=== PATIENT | female | born 1935 | race Caucasian/White ===

== ENCOUNTER 2017-07-04 12:28 | Outpatient (CLI) | payer MEDICARE, BC | END 2017-07-04 12:29 | disposition short-term general hospital (02) | LOC: EMS 12:28 | PROVIDERS: ATTEND Surgery | DX: R41.0 Disorientation, unspecified (principal); R73.09 Other abnormal glucose | CPT/HCPCS: A0425; A0427; A0888 ==

== ENCOUNTER 2017-07-08 10:04 | Outpatient (CLI) | payer MEDICARE, BC | END 2017-07-08 10:05 | disposition short-term general hospital (02) | LOC: EMS 10:04 | PROVIDERS: ATTEND Surgery | DX: S09.93XA Unspecified injury of face, initial encounter (principal); W01.198A Fall on same level from slipping, tripping and stumbling with subsequent striking against other object, initial encounter; Y93.01 Activity, walking, marching and hiking; Y92.481 Parking lot as the place of occurrence of the external cause | CPT/HCPCS: A0425; A0429; A0888 ==

== ENCOUNTER 2017-08-17 09:33 | Outpatient (CLI) | payer MEDICARE, BC | END 2017-08-17 09:34 | disposition critical access hospital (66) | LOC: EMS 09:33 | PROVIDERS: ATTEND Surgery | DX: R11.2 Nausea with vomiting, unspecified (principal); R10.9 Unspecified abdominal pain; R19.7 Diarrhea, unspecified | CPT/HCPCS: A0425; A0427 ==

== ENCOUNTER 2017-08-17 09:50 | Inpatient (IN) | payer MEDICARE, BC ==
[2017-08-17] MEDS ORDERED: SODIUM CHLORIDE 0.9% 1,000 ML IV ONE (09:58)
[2017-08-17] MEDS ORDERED: PANTOPRAZOLE 40 MG VIAL IV STA (10:01)
--- NOTE | 2017-08-17 10:04 | ED Physician Documentation ---
PD HPI GI BLEED - Stated complaint Stated Complaint: N/V/D - Chief complaint Chief Complaint: Abd Pain - History obtained from History obtained from: Patient, Family - History of Present Illness Timing - onset: Last night Timing - duration: Hours Timing - details: Gradual onset, Still present Associated symptoms: Coffee ground emesis, Black/tarry stool, Abdominal pain Contributing factors: Bad food Improved by: Other (nothing) Similar symptoms before: Has not had sx before Recently seen: Not recently seen - Additional information Additional information: 82-year-old female living in assisted living at [place] has developed nausea and vomiting overnight and has vomited some coffee-ground material has dark diarrhea. She is weak and pale Review of Systems Constitutional: denies: Fever Ears: denies: Ear pain Nose: denies: Congestion Throat: denies: Sore throat Cardiac: denies: Chest pain / pressure, Palpitations Respiratory: denies: Dyspnea, Cough GI: reports: Abdominal Pain, Nausea, Vomiting, Diarrhea : denies: Dysuria, Frequency Skin: denies: Rash Musculoskeletal: denies: Neck pain, Back pain, Extremity pain PD PAST MEDICAL HISTORY - Past Medical History Past Medical History: Yes Cardiovascular: High cholesterol Respiratory: None Neuro: TIA, Peripheral neuropathy Endocrine/Autoimmune: Type 2 diabetes, HyPOthyroidism GI: GERD : Incontinence HEENT: Chronic hearing loss Psych: None Musculoskeletal: Osteoarthritis Derm: None - Past Surgical History Past Surgical History: Yes General: Appendectomy, Bowel surgery Ortho: Knee replacement - Present Medications Home Medications: Ambulatory Orders Medication Instructions Recorded Confirmed Aspirin/Dipyridamole [Aggrenox 25 1 each PO BID 10/21/13 08/17/17 mg-200 mg Capsule] Atorvastatin Calcium 20 mg PO DAILY 10/21/13 08/17/17 Calcitriol [Rocaltrol] 0.25 mcg PO DAILY 10/21/13 08/17/17 Celecoxib [CeleBREX] 200 mg PO DAILY 10/21/13 08/17/17 Donepezil HCl [Aricept] 10 mg PO DAILY 10/21/13 08/17/17 FLUoxetine [PROzac] 40 mg PO BID 10/21/13 08/17/17 HYDROcod/ACETAM 5/325 [Vicodin 1 each PO DAILY 10/21/13 08/17/17 5/325] Insulin Aspart (Vial) [NovoLOG] 1 - 4 unit SQ PRN PRN 12/16/13 10/12/17 Insulin Glargine,Hum.rec.anlog 20 unit SQ HS 10/21/13 08/17/17 [Lantus] Levothyroxine Sodium [Synthroid] 112 mcg PO DAILY 10/21/13 08/17/17 Metformin HCl [Metformin HCl ER] 500 mg PO BID 10/21/13 08/17/17 Promethazine [Phenergan] 25 - 50 mg PO Q6H PRN 10/21/13 08/17/17 Tizanidine HCl [Zanaflex] 4 mg PO DAILY 10/21/13 08/17/17 Tolterodine [Detrol LA] 4 mg PO DAILY 10/21/13 08/17/17 raNITIdine [Zantac] 150 mg PO DAILY 10/21/13 08/17/17 - Allergies Allergies/Adverse Reactions: Allergies Allergy/AdvReac Type Severity Reaction Status Date / Time No Known Drug Allergies Allergy Verified 10/21/13 15:44 - Social History Does the pt smoke?: No Smoking Status: Never smoker Does the pt drink ETOH?: No Does the pt have substance abuse?: No - Immunizations Immunizations are current?: Yes - POLST Patient has POLST: No POLST Status: Full Code PD ED PE NORMAL - Vitals Vital signs reviewed: Yes (hypertensive ) - General General: No acute distress, Well developed/nourished, Other (thin pale lenz appearing female with very white eyes ) - HEENT HEENT: Atraumatic, PERRL, EOMI, Other (The conjunctiva are pale and there is dried brown vomitus on the lips. ) - Neck Neck: Supple, no meningeal sign - Cardiac Cardiac: RRR, Other (1/6 holosystolic murmer at LSB) - Respiratory Respiratory: No respiratory distress, Clear bilaterally - Abdomen Abdomen: Soft, Non tender - Rectal Rectal: Other (dark brown stool is present and is guiac negative) - Back Back: No CVA TTP, No spinal TTP - Derm Derm: Normal color, Warm and dry, No rash - Extremities Extremities: No deformity, No edema - Neuro Neuro: No motor deficit, No sensory deficit - Psych Psych: Normal mood, Normal affect Results - Vitals Vitals: Vital Signs - 24 hr 08/17/17 08/17/17 09:49 10:20 Temperature 36.5 C Heart Rate 66 66 Respiratory 17 19 Rate Blood Pressure 134/106 H 154/66 H O2 Saturation 100 100 Oxygen O2 Source Room air - Labs Labs: Laboratory Tests 08/17/17 08/17/17 08/17/17 10:03 10:03 10:03 WBC 13.2 H RBC 4.07 L Hgb 12.8 Hct 38.6 MCV 94.7 MCH 31.4 H MCHC 33.2 RDW 14.4 Plt Count 209 MPV 7.5 L Neut # 11.5 H Lymph # 0.9 L [place] # 0.7 Eos # 0.1 Baso # 0.1 Absolute Nucleated RBC 0.00 Nucleated RBC % 0.0 Sodium 144 Potassium 3.1 L Chloride 101 Carbon Dioxide 30 Anion Gap 13.0 BUN 25 H Creatinine 0.9 Estimated GFR (MDRD) 60 L Glucose 160 H Calcium 9.7 Total Bilirubin 0.4 AST 31 ALT 21 Alkaline Phosphatase 70 Troponin I Total Protein 7.1 Albumin 4.0 Globulin 3.1 Albumin/Globulin Ratio 1.3 Lipase 24 Urine Color Urine Clarity Urine pH Ur Specific [place] Urine Protein Urine Glucose (UA) Urine Ketones Urine Occult Blood Urine Nitrite Urine Bilirubin Urine Urobilinogen Ur Leukocyte Esterase Ur Microscopic Review Urine Culture Comments Blood Type A NEGATIVE Antibody Screen NEGATIVE Crossmatch IS Only See Detail 08/17/17 08/17/17 10:03 11:20 WBC RBC Hgb Hct MCV MCH MCHC RDW Plt Count MPV Neut # Lymph # [place] # Eos # Baso # Absolute Nucleated RBC Nucleated RBC % Sodium Potassium Chloride Carbon Dioxide Anion Gap BUN Creatinine Estimated GFR (MDRD) Glucose Calcium Total Bilirubin AST ALT Alkaline Phosphatase Troponin I < 0.04 Total Protein Albumin Globulin Albumin/Globulin Ratio Lipase Urine Color LT. YELLOW Urine Clarity CLEAR Urine pH 8.5 H Ur Specific [place] 1.015 Urine Protein NEGATIVE Urine Glucose (UA) NEGATIVE Urine Ketones NEGATIVE Urine Occult Blood NEGATIVE Urine Nitrite NEGATIVE Urine Bilirubin NEGATIVE Urine Urobilinogen 0.2 (NORMAL) Ur Leukocyte Esterase NEGATIVE Ur Microscopic Review NOT INDICATED Urine Culture Comments NOT INDICATED Blood Type Antibody Screen Crossmatch IS Only Procedures - IVC sono (time) 1100 Bedside IVC sono: IVC measures (cm) (1.93), IVC collapsed c insp (cm) (complete) , Dehydration (mild by collapse after 1 liter of saline.) PD MEDICAL DECISION MAKING - ED course Complexity details: reviewed results, re-evaluated patient, considered differential, d/w patient, d/w family ED course: 82-year-old female presents to the emergency department ashen finch with pale conjunctival having vomited brown liquid. The initial concern was for acute GI bleeding. She is administered a liter of fluid and following that still has some mild dehydration. Her H&H are normal. Sampling of the dark stool is negative for blood. The patient has improved color and still has nausea and vomiting. I suspect the brown vomitus was the chocolate cookies the patient had (she ate about 6 cookies) before she started vomiting. Here in the ED she is hydrated with saline and continues to have some nausea vomiting and diarrhea. Admission for gastroenteritis is sought. Dr. Quiroz graciously agrees to care for the patient in the hospital. Departure - Departure Disposition: ED Place in Observation Clinical Impression: Gastroenteritis, Dehydration Condition: Fair
[2017-08-17 10:11] LABS: BASOPHILS # (AUTO) 0.1 10^3/uL (0.0-0.1); BASOPHILS % (AUTO) 0.7 %; EOSINOPHILS # (AUTO) 0.1 10^3/uL (0.0-0.7); EOSINOPHILS % (AUTO) 0.5 %; HCT - HEMATOCRIT 38.6 % (37.0-47.0); HGB - HEMOGLOBIN 12.8 g/dL (12.0-16.0); LYMPHOCYTES # (AUTO) 0.9 10^3/uL (1.5-3.5); LYMPHOCYTES % (AUTO) 6.6 %; MEAN CORPUSCULAR HEMOGLOBIN 31.4 pg (27.0-31.0); MEAN CORPUSCULAR HGB CONC 33.2 g/dL (32.0-36.0); MEAN CORPUSCULAR VOLUME 94.7 fL (81.0-99.0); MEAN PLATELET VOLUME 7.5 fL (7.9-10.8); MONOCYTES # (AUTO) 0.7 10^3/uL (0.0-1.0); MONOCYTES % (AUTO) 4.9 %; NEUTROPHILS # (AUTO) 11.5 10^3/uL (1.5-6.6); NEUTROPHILS % (AUTO) 87.3 %; RED BLOOD COUNT 4.07 10^6/uL (4.20-5.40); RED CELL DISTRIBUTION WIDTH 14.4 % (12.0-15.0); UNCORRECTED WHITE BLOOD COUNT 13.2 x10^3/uL; WHITE BLOOD COUNT 13.2 x10^3/uL (4.8-10.8)
[2017-08-17] MEDS ORDERED: PANTOPRAZOLE 40 MG VIAL ONE (10:15)
[2017-08-17 10:22] LABS: ALBUMIN/GLOBULIN RATIO 1.3 (1.0-2.2); BILIRUBIN,TOTAL 0.4 mg/dL (0.2-1.0); CALCIUM 9.7 mg/dL (8.5-10.3); CREATININE 0.9 mg/dL (0.4-1.0); POTASSIUM 3.1 mmol/L (3.5-5.0); TOTAL PROTEIN 7.1 g/dL (6.7-8.2)
[2017-08-17 11:32] LABS: BILIRUBIN,URINE NEGATIVE (NEGATIVE); PH,URINE 8.5 PH (5.0-7.5)
[2017-08-17 11:38] LABS: UA CHARGE (STRIP ONLY) YES; UR CULTURE IF IND NOT INDICATED
[2017-08-17] MEDS ORDERED: ONDANSETRON 4 MG/2 ML VIAL IVP STA (12:57)
[2017-08-17] MEDS ORDERED: SODIUM CHLORIDE FLUSH 0.9% 10 ML SYRINGE IVP ONE (13:04)
[2017-08-17] MEDS ORDERED: ONDANSETRON 4 MG/2 ML VIAL ONE (13:04)
[2017-08-17] MEDS ORDERED: ACETAMINOPHEN 325 MG TABLET PO PRN (13:08)
[2017-08-17] MEDS ORDERED: ONDANSETRON 4 MG/2 ML VIAL IVP PRN (13:08)
[2017-08-17] MEDS ORDERED: ACETAMINOPHEN 1,000 MG/100 ML 100 ML IV STA (13:40)
[2017-08-17] MEDS ORDERED: ACETAMINOPHEN 1,000 MG/100 ML 0 ML IV ONE (13:54)
[2017-08-17] MEDS: SODIUM CHLORIDE FLUSH 0.9% 10 ML SYRINGE IVP SCH ×2 (14:29→22:24)
[2017-08-17] MEDS: SODIUM CHLORIDE 0.9% 1,000 ML IV SCH (14:29)
[2017-08-17] MEDS: cefTRIAXone 1 GM in SODIUM CHLORIDE 0.9% MINIBAG 100 ML IV SCH (14:29)
--- NOTE | 2017-08-17 15:11 | HISTORY & PHYSICAL EXAMINATION ---
DATE OF ADMISSION: 08/17/2017 PATIENT WAS SEEN: At 1 p.m. CODE STATUS: DO NOT RESUSCITATE. PRIMARY CARE PROVIDER: aKr Carr MD EXAM LIMITATIONS: None. RECORDS: The records were reviewed. SOURCE OF INFORMATION: The source of information was the patient. CHIEF COMPLAINT: Nausea and vomiting. ADVANCE DIRECTIVE: The patient states SHE HAS NO ADVANCE DIRECTIVE. The patient is an 82-year-old white female who at 6 chocolate cookies last night and began vomiting early this morning. She also had shakes and chills. She also complains of diarrhea. DRUG ALLERGIES: NO KNOWN DRUG ALLERGIES. HOME MEDICATIONS 1. Aspirin 81 mg 1 tab p.o. twice a day. 2. Atorvastatin 20 mg 1 tab p.o. every day. 3. Calcitriol 0.25 mcg 1 tab p.o. every day. 4. Lantus 20 units subcutaneous at bedtime. 5. Celebrex 200 mg 1 tab p.o. every day. 6. Donepezil 10 mg 1 tab p.o. every day. 7. Fluoxetine 40 mg 1 tab p.o. twice a day. 8. [place] 5/325 mg 1 tab p.o. every day. 9. NovoLog 1 to 4 units subcutaneous p.r.n. with meals. 10. Levothyroxine 112 mcg 1 tab p.o. every day. 11. Metformin 500 mg 1 tab p.o. twice a day with meals. 12. Phenergan 25 mg to 50 mg p.o. every 6 hours. 13. Zantac 150 mg 1 tab p.o. every day. 14. Detrol LA 4 mg 1 tab p.o. every day. 15. Zanaflex 4 mg 1 tab p.o. every day. PAST MEDICAL HISTORY: Diabetes mellitus, dementia, and hypothyroidism. FAMILY HISTORY: Noncontributory. SOCIAL HISTORY: She is single. She has no children. She smoked 3 packs per day for 15 years, quit 20 years ago. She does not drink alcohol. She uses no recreational drugs. She lives alone at home. REVIEW OF SYSTEMS RESPIRATORY: Productive cough and shortness of breath. HEART: Chest pain from vomiting. ABDOMEN: Diarrhea, nausea and vomiting. URINARY SYSTEM: No burning urine, no frequency. HEAD: No headaches. EYES: No blurred vision. EARS: No ear pain or tinnitus. NOSE: No runny nose. THROAT: No pain or redness. MUSCULOSKELETAL: Proximal muscle weakness, lower back pain. JOINTS: Right and left knee pain. NEUROLOGIC: No dementia. No aphasia. No limb weakness. WEAKNESS AND FATIGUE: Yes. FEVER: Yes. PHYSICAL EXAMINATION VITAL SIGNS: Temperature of 36.5 degrees, pulse of 66, respiratory rate of 17, blood pressure of 134/106, 100% O2 saturation on room air. GENERAL: She is alert and cooperative. HEENT: Head is atraumatic, normocephalic. Eyes are PERRLA, EOMI. NECK: Supple. No JVD. No bruits. No thyroid enlargement. No adenopathy. HEART: RRR., III/ systolic murmur at 2nd RICS and LSB LUNGS: Clear to auscultation. ABDOMEN: Positive for bowel sounds, soft, nontender. No rebound, no guarding. EXTREMITIES: Warm. No edema, +2 pedal pulses. She has 5/5 muscle strength in upper and lower extremities. NEUROLOGIC: She is oriented x3, follows commands, moves all 4 extremities. LABORATORY DATA: Sodium is 144, potassium is 3.1, chloride is 101, bicarbonate is 30, BUN is 25, creatinine is 0.9, glucose is 160. White blood cells are 13.2 , hemoglobin is 12.8, hematocrit 38.6, platelets are 209,000. Troponin is less than 0.04. ASSESSMENT AND PLAN: Gastroenteritis that will be treated with intravenous 0.9 normal saline, IV Zofran and Tylenol. Hypokalemia will be treated with potassium chloride rider. Suspected infection will be treated with IV Rocephin. Hyperlipidemia will be treated with Lipitor. Osteoarthritis will be treated with Celebrex. Dementia will be treated with Aricept. Depression will be treated with Prozac. Diabetes mellitus will be treated with subcutaneous Lantus. Hypothyroidism will be treated with levothyroxine. Incontinence will be treated with Detrol LA. Her anticipated length of stay is 2 days. She will be on heparin 5000 units subcutaneously b.i.d. for DVT prevention, and she will be on IV Protonix to prevent stress ulcers. JOB #: [id number] EXT JOB #:[id number] [facility]
[2017-08-17] MEDS ORDERED: PROCHLORPERAZINE INJ 10 MG in SODIUM CHLORIDE 0.9% 50 ML IV PRN (17:21)
[2017-08-17] MEDS ORDERED: MORPHINE 2 MG/ML SYRINGE IVP PRN (17:22)
--- NOTE | 2017-08-17 17:59 | XRAY Report ---
FRONTAL CHEST: 08/17/2017 CLINICAL INDICATION: Shortness of breath. Frontal view of the chest demonstrates a normal cardiac silhouette. The lungs are hyperinflated with emphysematous changes. No focal consolidation, effusion, or pneumothorax is present. Old, healed r ib fractures are noted. IMPRESSION: EMPHYSEMA. NO EVIDENCE OF ACUTE CARDIOPULMONARY DISEASE. JOB #: [id number] EXT JOB #:[id number]
[2017-08-17] MEDS: POTASSIUM CHLOR 10 MEQ/100 ML 10 MEQ/100 ML BAG IV SCH ×2 (18:01→19:10)
[2017-08-17 19:25] LABS: HEMOGLOBIN A1C 0.9 g/dL
[2017-08-17] MEDS ORDERED: POTASSIUM CHLOR 10 MEQ/100 ML 10 MEQ/100 ML BAG IV SCH ×2 (21:00→22:00)
[2017-08-17] MEDS ORDERED: INSULIN GLARGINE 300 UNIT/3 ML PEN SUBQ SCH (21:00)
[2017-08-17] MEDS: INSULIN ASPART 300 UNIT/3 ML PEN SUBQ SCH (22:20)
[2017-08-17] MEDS: HEPARIN 5,000 UNIT/ML VIAL SUBQ SCH (22:22)
[2017-08-17] MEDS: ASPIRIN/DIPYRIDAMOLE 25 MG/200 MG CAPSULE PO SCH (22:23)
[2017-08-17] MEDS: FLUoxetine 10 MG CAPSULE PO SCH (22:23)
[2017-08-17] MEDS: ATORVASTATIN 10 MG TABLET PO SCH (22:23)
[2017-08-18] MEDS: SODIUM CHLORIDE 0.9% 1,000 ML IV SCH (03:06)
[2017-08-18 06:23] LABS: BASOPHILS % (AUTO) 0.4 %; HCT - HEMATOCRIT 34.5 % (37.0-47.0); HGB - HEMOGLOBIN 11.6 g/dL (12.0-16.0); LYMPHOCYTES # (AUTO) 1.3 10^3/uL (1.5-3.5); LYMPHOCYTES % (AUTO) 9.6 %; MEAN CORPUSCULAR HEMOGLOBIN 32.3 pg (27.0-31.0); MEAN CORPUSCULAR HGB CONC 33.6 g/dL (32.0-36.0); MEAN CORPUSCULAR VOLUME 96.2 fL (81.0-99.0); MEAN PLATELET VOLUME 8.5 fL (7.9-10.8); MONOCYTES # (AUTO) 0.9 10^3/uL (0.0-1.0); MONOCYTES % (AUTO) 6.9 %; NEUTROPHILS % (AUTO) 83.1 %; RED BLOOD COUNT 3.58 10^6/uL (4.20-5.40); RED CELL DISTRIBUTION WIDTH 14.8 % (12.0-15.0); UNCORRECTED WHITE BLOOD COUNT 13.2 x10^3/uL; WHITE BLOOD COUNT 13.2 x10^3/uL (4.8-10.8)
[2017-08-18] MEDS: SODIUM CHLORIDE FLUSH 0.9% 10 ML SYRINGE IVP SCH ×3 (06:28→21:57)
[2017-08-18] MEDS: PANTOPRAZOLE 40 MG VIAL IVP SCH (06:28)
[2017-08-18 06:29] LABS: HEMOGLOBIN A1C 0.69 g/dL
[2017-08-18 06:30] LABS: ALBUMIN/GLOBULIN RATIO 1.2 (1.0-2.2); BILIRUBIN,TOTAL 0.6 mg/dL (0.2-1.0); CALCIUM 8.7 mg/dL (8.5-10.3); CREATININE 0.9 mg/dL (0.4-1.0); POTASSIUM 2.9 mmol/L (3.5-5.0); TOTAL PROTEIN 6.2 g/dL (6.7-8.2)
[2017-08-18] MEDS: INSULIN ASPART 300 UNIT/3 ML PEN SUBQ SCH ×4 (09:23→21:57)
[2017-08-18] MEDS: cefTRIAXone 1 GM in SODIUM CHLORIDE 0.9% MINIBAG 100 ML IV SCH (10:44)
[2017-08-18] MEDS: ASPIRIN/DIPYRIDAMOLE 25 MG/200 MG CAPSULE PO SCH ×2 (10:47→21:56)
[2017-08-18] MEDS: FLUoxetine 10 MG CAPSULE PO SCH ×2 (10:47→21:56)
[2017-08-18] MEDS: POTASSIUM CHLORIDE 20 MEQ TABLET PO SCH ×2 (10:47→18:58)
[2017-08-18] MEDS: CELECOXIB 100 MG CAPSULE PO SCH (10:48)
[2017-08-18] MEDS: DONEPEZIL 5 MG TABLET PO SCH (10:48)
[2017-08-18] MEDS: LEVOTHYROXINE 112 MCG TABLET PO SCH (10:48)
[2017-08-18] MEDS: CALCITRIOL 0.25 MCG CAPSULE PO SCH (10:48)
[2017-08-18] MEDS: tiZANidine 4 MG TABLET PO SCH (10:48)
[2017-08-18] MEDS: TOLTERODINE LA 2 MG CAPSULE PO SCH (10:49)
[2017-08-18] MEDS: POLYETHYLENE GLYCOL 3350 17 GM PACKET PO SCH (10:49)
[2017-08-18] MEDS: HEPARIN 5,000 UNIT/ML VIAL SUBQ SCH ×2 (11:17→21:57)
[2017-08-18] MEDS ORDERED: DEXTROSE 50% ABBOJECT 25 GM/50 ML SYRINGE ONE (11:56)
[2017-08-18] MEDS ORDERED: DEXTROSE 5%-0.45% NACL 1,000 ML IV SCH (12:00)
[2017-08-18] MEDS ORDERED: DEXTROSE 50% ABBOJECT 25 GM/50 ML SYRINGE IVP ONE (12:00)
[2017-08-18] MEDS: DEXTROSE 5%-0.45% NACL 1,000 ML IV SCH (18:58)
--- NOTE | 2017-08-18 19:09 | PROVIDER PROGRESS NOTE ---
Assessment/Plan - Problem List (1) Gastroenteritis Assessment/Plan: on IV .9NS and IV Zofran (2) Dehydration Assessment/Plan: IN .9 NS (3) Hyperlipidemia Assessment/Plan: on lipitor (4) Osteoarthritis Assessment/Plan: on celebrex (5) Dementia Assessment/Plan: on Aricept (6) Depression Assessment/Plan: on Prozac (7) Diabetes mellitus Assessment/Plan: on sliding scale insulin with meals (8) Hypothyroidism Assessment/Plan: on levothyroxine (9) Urinary incontinence Assessment/Plan: on detrol LA - Current Meds Current Meds: Current Medications Generic Name Dose Route Start Last Admin Trade Name Freq PRN Reason Stop Dose Admin Atorvastatin Calcium 20 mg 08/17/17 21:00 08/17/17 22:23 Lipitor PO 20 mg QPM TYLER Administration Calcitriol 0.25 mcg 08/18/17 09:00 08/18/17 10:48 Rocaltrol PO 0.25 mcg DAILY TYLER Administration Celecoxib 200 mg 08/18/17 09:00 08/18/17 10:48 Celebrex PO 200 mg DAILY TYLER Administration Dipyridamole/Aspirin 1 cap 08/17/17 21:00 08/18/17 10:47 Aggrenox PO 1 cap BID TYLER Administration Donepezil HCl 10 mg 08/18/17 09:00 08/18/17 10:48 Aricept PO 10 mg DAILY TYLER Administration Fluoxetine HCl 40 mg 08/17/17 21:00 08/18/17 10:47 Prozac PO 40 mg BID TYLER Administration Heparin Sodium (Porcine) 5,000 unit 08/17/17 21:00 08/18/17 11:17 SUBQ 5,000 unit BID TYLER Administration Ceftriaxone Sodium 1 gm/ 100 mls @ 200 mls/hr 08/17/17 14:00 08/18/17 10:44 Sodium Chloride IV 200 mls/hr DAILY TYLER Administration Dextrose/Sodium Chloride 1,000 mls @ 30 mls/hr 08/18/17 15:33 08/18/17 18:58 D5.45ns IV 30 mls/hr .[id number] TYLER Administration Insulin Aspart 1 - 9 unit 08/17/17 21:00 08/18/17 18:59 Novolog SUBQ Not Given 0800,1200,1700,2100 REPLACED BY [facility] Protocol Levothyroxine Sodium 112 mcg 08/18/17 09:00 08/18/17 10:48 Synthroid PO 112 mcg DAILY TYLER Administration Ondansetron HCl 4 mg 08/17/17 13:08 08/18/17 08:25 Zofran Inj IVP 4 mg Q6HR PRN Administration Nausea / Vomiting Pantoprazole Sodium 40 mg 08/18/17 07:00 08/18/17 06:28 Protonix IVP 40 mg QDAC TYLER Administration Polyethylene Glycol 17 gm 08/18/17 09:00 08/18/17 10:49 Miralax PO Not Given DAILY TYLER Sodium Chloride 10 ml 08/17/17 14:00 08/18/17 14:28 Normal Saline Flush 0.9% IVP Not Given Q8HR TYLER Tizanidine HCl 4 mg 08/18/17 09:00 08/18/17 10:48 Zanaflex PO 4 mg DAILY TYLER Administration Tolterodine Tartrate 4 mg 08/18/17 09:00 08/18/17 10:49 Detrol La PO 4 mg DAILY TYLER Administration - Lab Result Lab results reviewed: Yes Fish Bone Diagrams: 08/18/17 05:28 08/18/17 05:28 - Additional Planning Condition/Complexity: Improved (She is less nauseous today.) My Orders: My Active Orders 08/17/17 18:47 Blood Glucose Checks - Eating [RC] 0800,1200,1700,2100 Initiate Hypoglycemia Protocol [RC] .protocol 08/17/17 21:00 Insulin Aspart [NovoLOG] 1 - 9 unit SUBQ 0800,1200,1700,2100 08/18/17 15:33 Dextrose 5%-0.45% NaCl [D5.45ns] 1,000 ml IV 30 mls/hr 08/18/17 Breakfast DIET [Clear Liquid Diet] [DIET] 08/19/17 05:00 BMP - BASIC METABOLIC PANEL [CHEM] Routine CBC - COMP BLD CT W/AUTO DIFF [HEME] Routine Plan Discussed with:: Patient Time Spent: 15-30 minutes Subjective - Subjective Patient Reports: Feeling Better (The patient is not as nauseous today. She is eating food. Her Lantus was held because she was becoming hypoglycemic on the lantus dose.) Objective Vital Signs: Vital Signs - 24 hr 08/17/17 08/17/17 08/18/17 20:06 23:55 04:28 Temperature 37.0 C 37.5 C 37.3 C Heart Rate [ 76 84 70 Brachial] Respiratory 17 16 16 Rate Blood Pressure 163/51 H 138/68 H 134/54 H [Left Brachial artery] Blood Pressure [Right Brachial artery] O2 Saturation 98 97 99 08/18/17 08/18/17 08/18/17 08:27 12:03 15:47 Temperature 36.7 C 36.5 C Heart Rate [ 57 L 57 L 112 H Brachial] Respiratory 18 16 Rate Blood Pressure 133/90 H [Left Brachial artery] Blood Pressure 106/69 109/51 L [Right Brachial artery] O2 Saturation 100 96 Oxygen O2 Source Room air I&O (Last 24 Hrs): Intake and Output Totals x24h 08/16/17 08/17/17 08/18/17 23:59 23:59 23:59 Intake Total 668.121 4219.667 Output Total 150 350 Balance 235.989 6873.667 General: Alert, Oriented x3, Cooperative HEENT: Atraumatic, PERRLA, EOMI Neck: Supple, No JVD Neuro: Alert, CN 2-12 Grossly Intact, Oriented Times 3 Cardiovascular: Regular rate (3/6 systolic murmur at 2nd RICS and left sternal border), Other Respiratory: Chest non-tender, No respiratory distress, Breath sounds nml Abdomen: Normal bowel sounds, Soft, No tenderness Extremities: No edema - Results Results: Laboratory Results WBC 13.2 x10^3/uL (4.8-10.8) H 08/18/17 05:28 RBC 3.58 10^6/uL (4.20-5.40) L 08/18/17 05:28 Hgb 11.6 g/dL (12.0-16.0) L 08/18/17 05:28 Hct 34.5 % (37.0-47.0) L 08/18/17 05:28 MCV 96.2 fL (81.0-99.0) 08/18/17 05:28 MCH 32.3 pg (27.0-31.0) H 08/18/17 05:28 MCHC 33.6 g/dL (32.0-36.0) 08/18/17 05:28 RDW 14.8 % (12.0-15.0) 08/18/17 05:28 Plt Count 193 10^3/uL (130-450) 08/18/17 05:28 MPV 8.5 fL (7.9-10.8) 08/18/17 05:28 Neut # 11.0 10^3/uL (1.5-6.6) H 08/18/17 05:28 Lymph # 1.3 10^3/uL (1.5-3.5) L 08/18/17 05:28 [place] # 0.9 10^3/uL (0.0-1.0) 08/18/17 05:28 Eos # 0.0 10^3/uL (0.0-0.7) 08/18/17 05:28 Baso # 0.0 10^3/uL (0.0-0.1) 08/18/17 05:28 Absolute Nucleated RBC 0.00 x10^3/uL 08/18/17 05:28 Nucleated RBC % 0.0 /100WBC 08/18/17 05:28 Sodium 140 mmol/L (135-145) 08/18/17 05:28 Potassium 2.9 mmol/L (3.5-5.0) L 08/18/17 05:28 Chloride 104 mmol/L (101-111) 08/18/17 05:28 Carbon Dioxide 26 mmol/L (21-32) 08/18/17 05:28 Anion Gap 10.0 (6-13) 08/18/17 05:28 BUN 25 mg/dL (6-20) H 08/18/17 05:28 Creatinine 0.9 mg/dL (0.4-1.0) 08/18/17 05:28 Estimated GFR (MDRD) 60 (>89) L 08/18/17 05:28 Glucose 72 mg/dL (70-100) 08/18/17 05:28 Glycated Hemoglobin 7.6 % (4.6-6.2) H 08/18/17 05:28 Estim Average Glucose 171 (70-100) H 08/18/17 05:28 Lactic Acid 2.3 mmol/L (0.5-2.2) H 08/18/17 00:30 Calcium 8.7 mg/dL (8.5-10.3) 08/18/17 05:28 Magnesium 1.5 mg/dL (1.7-2.8) L 08/18/17 05:28 Total Bilirubin 0.6 mg/dL (0.2-1.0) 08/18/17 05:28 AST 33 IU/L (10-42) 08/18/17 05:28 ALT 25 IU/L (10-60) 08/18/17 05:28 Alkaline Phosphatase 61 IU/L (42-121) 08/18/17 05:28 Troponin I < 0.04 ng/mL (<0.49) 08/17/17 10:03 Total Protein 6.2 g/dL (6.7-8.2) L 08/18/17 05:28 Albumin 3.4 g/dL (3.2-5.5) 08/18/17 05:28 Globulin 2.8 g/dL (2.1-4.2) 08/18/17 05:28 Albumin/Globulin Ratio 1.2 (1.0-2.2) 08/18/17 05:28 Lipase 24 U/L (22-51) 08/17/17 10:03 TSH 1.46 uIU/mL (0.34-5.60) 08/18/17 05:28 Urine Color LT. YELLOW 08/17/17 11:20 Urine Clarity CLEAR (CLEAR) 08/17/17 11:20 Urine pH 8.5 PH (5.0-7.5) H 08/17/17 11:20 Ur Specific [place] 1.015 (1.002-1.030) 08/17/17 11:20 Urine Protein NEGATIVE mg/dL (NEGATIVE) 08/17/17 11:20 Urine Glucose (UA) NEGATIVE mg/dL (NEGATIVE) 08/17/17 11:20 Urine Ketones NEGATIVE mg/dL (NEGATIVE) 08/17/17 11:20 Urine Occult Blood NEGATIVE (NEGATIVE) 08/17/17 11:20 Urine Nitrite NEGATIVE (NEGATIVE) 08/17/17 11:20 Urine Bilirubin NEGATIVE (NEGATIVE) 08/17/17 11:20 Urine Urobilinogen 0.2 (NORMAL) E.U./dL (NORMAL) 08/17/17 11:20 Ur Leukocyte Esterase NEGATIVE (NEGATIVE) 08/17/17 11:20 Ur Microscopic Review NOT INDICATED 08/17/17 11:20 Urine Culture Comments NOT INDICATED 08/17/17 11:20 Blood Type A NEGATIVE 08/17/17 10:03 Antibody Screen NEGATIVE 08/17/17 10:03 Crossmatch IS Only See Detail 08/17/17 10:03
[2017-08-18] MEDS ORDERED: POTASSIUM CHLORIDE 20 MEQ TABLET PO SCH ×2 (19:39→22:00)
[2017-08-18] MEDS: ATORVASTATIN 10 MG TABLET PO SCH (21:56)
[2017-08-19 05:23] LABS: CALCIUM 8.9 mg/dL (8.5-10.3); CREATININE 0.7 mg/dL (0.4-1.0); POTASSIUM 5.1 mmol/L (3.5-5.0)
[2017-08-19 05:24] LABS: BASOPHILS % (AUTO) 0.5 %; EOSINOPHILS # (AUTO) 0.1 10^3/uL (0.0-0.7); HCT - HEMATOCRIT 34.9 % (37.0-47.0); HGB - HEMOGLOBIN 11.6 g/dL (12.0-16.0); LYMPHOCYTES # (AUTO) 1.3 10^3/uL (1.5-3.5); LYMPHOCYTES % (AUTO) 16.6 %; MEAN CORPUSCULAR HEMOGLOBIN 32.4 pg (27.0-31.0); MEAN CORPUSCULAR HGB CONC 33.3 g/dL (32.0-36.0); MEAN CORPUSCULAR VOLUME 97.3 fL (81.0-99.0); MEAN PLATELET VOLUME 8.2 fL (7.9-10.8); MONOCYTES # (AUTO) 0.5 10^3/uL (0.0-1.0); MONOCYTES % (AUTO) 5.8 %; NEUTROPHILS # (AUTO) 6.2 10^3/uL (1.5-6.6); NEUTROPHILS % (AUTO) 76.1 %; RED BLOOD COUNT 3.59 10^6/uL (4.20-5.40); RED CELL DISTRIBUTION WIDTH 14.7 % (12.0-15.0); UNCORRECTED WHITE BLOOD COUNT 8.1 x10^3/uL; WHITE BLOOD COUNT 8.1 x10^3/uL (4.8-10.8)
[2017-08-19] MEDS: SODIUM CHLORIDE FLUSH 0.9% 10 ML SYRINGE IVP SCH ×3 (05:31→21:04)
[2017-08-19] MEDS: PANTOPRAZOLE 40 MG VIAL IVP SCH (06:10)
[2017-08-19] MEDS: SODIUM CHLORIDE FLUSH 0.9% 10 ML SYRINGE IVP PRN (06:10)
[2017-08-19] MEDS: INSULIN ASPART 300 UNIT/3 ML PEN SUBQ SCH ×4 (10:49→21:03)
[2017-08-19] MEDS: HEPARIN 5,000 UNIT/ML VIAL SUBQ SCH ×2 (11:10→21:05)
[2017-08-19] MEDS: CELECOXIB 100 MG CAPSULE PO SCH (11:10)
[2017-08-19] MEDS: POLYETHYLENE GLYCOL 3350 17 GM PACKET PO SCH (11:11)
[2017-08-19] MEDS: FLUoxetine 10 MG CAPSULE PO SCH ×2 (11:12→20:55)
[2017-08-19] MEDS ORDERED: PROCHLORPERAZINE 10 MG/2 ML VIAL IVP PRN (11:13)
[2017-08-19] MEDS: TOLTERODINE LA 2 MG CAPSULE PO SCH (11:14)
[2017-08-19] MEDS: DONEPEZIL 5 MG TABLET PO SCH (11:15)
[2017-08-19] MEDS: LEVOTHYROXINE 112 MCG TABLET PO SCH (11:15)
[2017-08-19] MEDS: CALCITRIOL 0.25 MCG CAPSULE PO SCH (11:16)
[2017-08-19] MEDS: cefTRIAXone 1 GM in SODIUM CHLORIDE 0.9% MINIBAG 100 ML IV SCH (11:16)
[2017-08-19] MEDS: ASPIRIN/DIPYRIDAMOLE 25 MG/200 MG CAPSULE PO SCH ×2 (11:56→21:03)
[2017-08-19] MEDS: tiZANidine 4 MG TABLET PO SCH (11:56)
[2017-08-19] MEDS: ATORVASTATIN 10 MG TABLET PO SCH (20:55)
[2017-08-19] MEDS: DEXTROSE 5%-0.45% NACL 1,000 ML IV SCH (21:04)
--- NOTE | 2017-08-19 21:35 | PROVIDER PROGRESS NOTE ---
Assessment/Plan - Problem List (1) Gastroenteritis Assessment/Plan: on IV .9NS and IV Zofran. The patient is eating food today without nausea and vomiting and would like to go home tomorrow. (2) Dehydration Assessment/Plan: resolved on IV .9 NS (3) Hyperlipidemia Assessment/Plan: on lipitor (4) Osteoarthritis Assessment/Plan: on celebrex (5) Dementia Assessment/Plan: on Aricept (6) Depression Assessment/Plan: on Prozac (7) Diabetes mellitus Assessment/Plan: on slidind scale insulin with meals (8) Hypothyroidism Assessment/Plan: on levothyroxine (9) Urinary incontinence Assessment/Plan: on detrol LA - Current Meds Current Meds: Current Medications Generic Name Dose Route Start Last Admin Trade Name Freq PRN Reason Stop Dose Admin Atorvastatin Calcium 20 mg 08/17/17 21:00 08/19/17 20:55 Lipitor PO 20 mg QPM TYLER Administration Calcitriol 0.25 mcg 08/18/17 09:00 08/19/17 11:16 Rocaltrol PO 0.25 mcg DAILY TYLER Administration Celecoxib 200 mg 08/18/17 09:00 08/19/17 11:10 Celebrex PO 200 mg DAILY TYLER Administration Dipyridamole/Aspirin 1 cap 08/17/17 21:00 08/19/17 21:03 Aggrenox PO 1 cap BID TYLER Administration Donepezil HCl 10 mg 08/18/17 09:00 08/19/17 11:15 Aricept PO 10 mg DAILY TYLER Administration Fluoxetine HCl 40 mg 08/17/17 21:00 08/19/17 20:55 Prozac PO 40 mg BID TYLER Administration Heparin Sodium (Porcine) 5,000 unit 08/17/17 21:00 08/19/17 21:05 SUBQ 5,000 unit BID TYLER Administration Ceftriaxone Sodium 1 gm/ 100 mls @ 200 mls/hr 08/17/17 14:00 08/19/17 11:50 Sodium Chloride IV Infused DAILY TYLER Infusion Dextrose/Sodium Chloride 1,000 mls @ 30 mls/hr 08/18/17 15:33 08/19/17 21:04 D5.45ns IV 30 mls/hr .[id number] TYLER Administration Insulin Aspart 1 - 9 unit 08/17/17 21:00 08/19/17 21:03 Novolog SUBQ 3 unit 0800,1200,1700,2100 TYLER Administration Protocol Levothyroxine Sodium 112 mcg 08/18/17 09:00 08/19/17 11:15 Synthroid PO 112 mcg DAILY TYLER Administration Ondansetron HCl 4 mg 08/17/17 13:08 08/18/17 08:25 Zofran Inj IVP 4 mg Q6HR PRN Administration Nausea / Vomiting Pantoprazole Sodium 40 mg 08/18/17 07:00 08/19/17 06:10 Protonix IVP 40 mg QDAC TYLER Administration Polyethylene Glycol 17 gm 08/18/17 09:00 08/19/17 11:11 Miralax PO 17 gm DAILY TYLER Administration Sodium Chloride 10 ml 08/17/17 13:08 08/19/17 06:10 Normal Saline Flush 0.9% IVP 10 ml PRN PRN Administration NEEDED PER PROVIDER ORDERS Sodium Chloride 10 ml 08/17/17 14:00 08/19/17 21:04 Normal Saline Flush 0.9% IVP Not Given Q8HR TYLER Tizanidine HCl 4 mg 08/18/17 09:00 08/19/17 11:56 Zanaflex PO 4 mg DAILY TYLER Administration Tolterodine Tartrate 4 mg 08/18/17 09:00 08/19/17 11:14 Detrol La PO 4 mg DAILY TYLER Administration - Lab Result Lab results reviewed: Yes Fish Bone Diagrams: 08/19/17 04:40 08/19/17 04:40 - Additional Planning Condition/Complexity: Improved (The patient is no longer nauseous or vomiting. She is eating all of her food.) My Orders: My Active Orders 08/19/17 Evaluate and Treat PT [PT] Routine 08/19/17 11:13 Prochlorperazine Inj [Compazine Inj] 10 mg IVP Q4HR PRN 08/19/17 11:38 Message to Nursing [RC] QSHIFT 08/19/17 Dinner DIET [Soft (Low Fiber) Diet] [DIET] 08/20/17 05:00 BMP - BASIC METABOLIC PANEL [CHEM] Routine CBC - COMP BLD CT W/AUTO DIFF [HEME] Routine Plan Discussed with:: Patient Time Spent: 15-30 minutes Subjective - Subjective Patient Reports: Feeling Better, No Complaints (The patient is no longer nauseous or vomitting. She is eating all of her meals and would like to go home tomorrow.) Objective Vital Signs: Vital Signs - 24 hr 08/19/17 08/19/17 08/19/17 08:41 11:43 17:00 Temperature 36.4 C L 36.6 C 36.6 C Heart Rate [ 55 L 89 53 L Brachial] Respiratory 15 18 17 Rate Blood Pressure 140/56 H 150/62 H 137/60 H [Left Brachial artery] O2 Saturation 100 92 100 Oxygen O2 Source Room air I&O (Last 24 Hrs): Intake and Output Totals x24h 08/17/17 08/18/17 08/19/17 23:59 23:59 23:59 Intake Total 2583 Output Total 650 Balance 1933 General: Alert, Oriented x3, Cooperative, No acute distress HEENT: Atraumatic, PERRLA, EOMI Neck: Supple, No JVD Neuro: Alert, CN 2-12 Grossly Intact, Oriented Times 3 Cardiovascular: Regular rate, Normal S1, Normal S2, Other (3/6 systolic murmur at 2nd RICS and left sternal border.) Respiratory: Chest non-tender, No respiratory distress, Breath sounds nml Abdomen: Normal bowel sounds, Soft, No tenderness Extremities: No cyanosis, No edema - Results Results: Laboratory Results WBC 8.1 x10^3/uL (4.8-10.8) 08/19/17 04:40 RBC 3.59 10^6/uL (4.20-5.40) L 08/19/17 04:40 Hgb 11.6 g/dL (12.0-16.0) L 08/19/17 04:40 Hct 34.9 % (37.0-47.0) L 08/19/17 04:40 MCV 97.3 fL (81.0-99.0) 08/19/17 04:40 MCH 32.4 pg (27.0-31.0) H 08/19/17 04:40 MCHC 33.3 g/dL (32.0-36.0) 08/19/17 04:40 RDW 14.7 % (12.0-15.0) 08/19/17 04:40 Plt Count 161 10^3/uL (130-450) 08/19/17 04:40 MPV 8.2 fL (7.9-10.8) 08/19/17 04:40 Neut # 6.2 10^3/uL (1.5-6.6) 08/19/17 04:40 Lymph # 1.3 10^3/uL (1.5-3.5) L 08/19/17 04:40 [place] # 0.5 10^3/uL (0.0-1.0) 08/19/17 04:40 Eos # 0.1 10^3/uL (0.0-0.7) 08/19/17 04:40 Baso # 0.0 10^3/uL (0.0-0.1) 08/19/17 04:40 Absolute Nucleated RBC 0.00 x10^3/uL 08/19/17 04:40 Nucleated RBC % 0.0 /100WBC 08/19/17 04:40 Sodium 140 mmol/L (135-145) 08/19/17 04:40 Potassium 5.1 mmol/L (3.5-5.0) H 08/19/17 04:40 Chloride 109 mmol/L (101-111) 08/19/17 04:40 Carbon Dioxide 25 mmol/L (21-32) 08/19/17 04:40 Anion Gap 6.0 (6-13) 08/19/17 04:40 BUN 15 mg/dL (6-20) 08/19/17 04:40 Creatinine 0.7 mg/dL (0.4-1.0) 08/19/17 04:40 Estimated GFR (MDRD) 80 (>89) L 08/19/17 04:40 Glucose 151 mg/dL (70-100) H 08/19/17 04:40 POC Whole Bld Glucose 201 mg/dL (70 - 100) H 08/19/17 19:43 Glycated Hemoglobin 7.6 % (4.6-6.2) H 08/18/17 05:28 Estim Average Glucose 171 (70-100) H 08/18/17 05:28 Lactic Acid 2.3 mmol/L (0.5-2.2) H 08/18/17 00:30 Calcium 8.9 mg/dL (8.5-10.3) 08/19/17 04:40 Magnesium 1.5 mg/dL (1.7-2.8) L 08/18/17 05:28 Total Bilirubin 0.6 mg/dL (0.2-1.0) 08/18/17 05:28 AST 33 IU/L (10-42) 08/18/17 05:28 ALT 25 IU/L (10-60) 08/18/17 05:28 Alkaline Phosphatase 61 IU/L (42-121) 08/18/17 05:28 Troponin I < 0.04 ng/mL (<0.49) 08/17/17 10:03 Total Protein 6.2 g/dL (6.7-8.2) L 08/18/17 05:28 Albumin 3.4 g/dL (3.2-5.5) 08/18/17 05:28 Globulin 2.8 g/dL (2.1-4.2) 08/18/17 05:28 Albumin/Globulin Ratio 1.2 (1.0-2.2) 08/18/17 05:28 Lipase 24 U/L (22-51) 08/17/17 10:03 TSH 1.46 uIU/mL (0.34-5.60) 08/18/17 05:28 Urine Color LT. YELLOW 08/17/17 11:20 Urine Clarity CLEAR (CLEAR) 08/17/17 11:20 Urine pH 8.5 PH (5.0-7.5) H 08/17/17 11:20 Ur Specific [place] 1.015 (1.002-1.030) 08/17/17 11:20 Urine Protein NEGATIVE mg/dL (NEGATIVE) 08/17/17 11:20 Urine Glucose (UA) NEGATIVE mg/dL (NEGATIVE) 08/17/17 11:20 Urine Ketones NEGATIVE mg/dL (NEGATIVE) 08/17/17 11:20 Urine Occult Blood NEGATIVE (NEGATIVE) 08/17/17 11:20 Urine Nitrite NEGATIVE (NEGATIVE) 08/17/17 11:20 Urine Bilirubin NEGATIVE (NEGATIVE) 08/17/17 11:20 Urine Urobilinogen 0.2 (NORMAL) E.U./dL (NORMAL) 08/17/17 11:20 Ur Leukocyte Esterase NEGATIVE (NEGATIVE) 08/17/17 11:20 Ur Microscopic Review NOT INDICATED 08/17/17 11:20 Urine Culture Comments NOT INDICATED 08/17/17 11:20 Blood Type A NEGATIVE 08/17/17 10:03 Antibody Screen NEGATIVE 08/17/17 10:03 Crossmatch IS Only See Detail 08/17/17 10:03
[2017-08-20 06:03] LABS: BASOPHILS # (AUTO) 0.1 10^3/uL (0.0-0.1); BASOPHILS % (AUTO) 0.6 %; EOSINOPHILS # (AUTO) 0.1 10^3/uL (0.0-0.7); EOSINOPHILS % (AUTO) 1.1 %; HCT - HEMATOCRIT 35.5 % (37.0-47.0); LYMPHOCYTES # (AUTO) 1.4 10^3/uL (1.5-3.5); MEAN CORPUSCULAR HEMOGLOBIN 32.6 pg (27.0-31.0); MEAN CORPUSCULAR HGB CONC 33.8 g/dL (32.0-36.0); MEAN CORPUSCULAR VOLUME 96.5 fL (81.0-99.0); MEAN PLATELET VOLUME 8.1 fL (7.9-10.8); MONOCYTES # (AUTO) 0.5 10^3/uL (0.0-1.0); MONOCYTES % (AUTO) 5.2 %; NEUTROPHILS # (AUTO) 6.9 10^3/uL (1.5-6.6); NEUTROPHILS % (AUTO) 77.1 %; NUCLEATED RED BLOOD CELLS AUTO 0.1 /100WBC; RED BLOOD COUNT 3.68 10^6/uL (4.20-5.40); RED CELL DISTRIBUTION WIDTH 14.2 % (12.0-15.0)
[2017-08-20] MEDS: PANTOPRAZOLE 40 MG VIAL IVP SCH (06:18)
[2017-08-20 06:19] LABS: CALCIUM 8.8 mg/dL (8.5-10.3); CREATININE 0.8 mg/dL (0.4-1.0); POTASSIUM 4.1 mmol/L (3.5-5.0)
[2017-08-20] MEDS: SODIUM CHLORIDE FLUSH 0.9% 10 ML SYRINGE IVP SCH ×3 (06:19→21:10)
[2017-08-20] MEDS: INSULIN ASPART 300 UNIT/3 ML PEN SUBQ SCH ×4 (08:53→21:10)
[2017-08-20] MEDS: FLUoxetine 10 MG CAPSULE PO SCH ×2 (10:58→21:09)
[2017-08-20] MEDS: cefTRIAXone 1 GM in SODIUM CHLORIDE 0.9% MINIBAG 100 ML IV SCH (10:58)
[2017-08-20] MEDS: POLYETHYLENE GLYCOL 3350 17 GM PACKET PO SCH (10:58)
[2017-08-20] MEDS: TOLTERODINE LA 2 MG CAPSULE PO SCH (10:59)
[2017-08-20] MEDS: LEVOTHYROXINE 112 MCG TABLET PO SCH (10:59)
[2017-08-20] MEDS: tiZANidine 4 MG TABLET PO SCH (10:59)
[2017-08-20] MEDS: CELECOXIB 100 MG CAPSULE PO SCH (10:59)
[2017-08-20] MEDS: HEPARIN 5,000 UNIT/ML VIAL SUBQ SCH ×2 (10:59→21:12)
[2017-08-20] MEDS: ASPIRIN/DIPYRIDAMOLE 25 MG/200 MG CAPSULE PO SCH ×2 (11:00→21:09)
[2017-08-20] MEDS: DONEPEZIL 5 MG TABLET PO SCH (11:00)
[2017-08-20] MEDS: CALCITRIOL 0.25 MCG CAPSULE PO SCH (11:00)
--- NOTE | 2017-08-20 19:38 | Discharge Plan ---
Discharge Plan Disposition: 01 Home, Self Care Condition: Stable Diet: Diabetic Activity Restrictions: Activity as Tolerated Shower Restrictions: No Driving Restrictions: No Weight Bearing: Partial Weight Additional Instructions or Follow Up instructions: The patient will return to [facility]. Her diagnosis was Gastroenteritis and Dehydration. No Smoking: If you smoke, Please STOP! Call for help. Follow-up with: Kar Carr MD [Primary Care Provider] - 1 Week
[2017-08-20] MEDS ORDERED: NITROGLYCERIN SL 0.4 MG TABLET SL PRN (20:13)
[2017-08-20] MEDS: ATORVASTATIN 10 MG TABLET PO SCH (21:09)
[2017-08-20] MEDS ORDERED: diphenhydrAMINE 25 MG CAPSULE PO PRN (21:51)
[2017-08-21] MEDS: SODIUM CHLORIDE FLUSH 0.9% 10 ML SYRINGE IVP SCH ×2 (06:00→09:23)
[2017-08-21] MEDS: SODIUM CHLORIDE FLUSH 0.9% 10 ML SYRINGE IVP PRN (06:01)
[2017-08-21] MEDS: PANTOPRAZOLE 40 MG VIAL IVP SCH (06:02)
[2017-08-21 08:15] VITALS: BP 158/60
[2017-08-21] MEDS: tiZANidine 4 MG TABLET PO SCH (09:23)
[2017-08-21] MEDS: INSULIN ASPART 300 UNIT/3 ML PEN SUBQ SCH (09:23)
[2017-08-21] MEDS: DONEPEZIL 5 MG TABLET PO SCH (09:23)
[2017-08-21] MEDS: HEPARIN 5,000 UNIT/ML VIAL SUBQ SCH (09:23)
[2017-08-21] MEDS: TOLTERODINE LA 2 MG CAPSULE PO SCH (09:24)
[2017-08-21] MEDS: LEVOTHYROXINE 112 MCG TABLET PO SCH (09:24)
[2017-08-21] MEDS: FLUoxetine 10 MG CAPSULE PO SCH (09:24)
[2017-08-21] MEDS: cefTRIAXone 1 GM in SODIUM CHLORIDE 0.9% MINIBAG 100 ML IV SCH (09:24)
[2017-08-21] MEDS: CELECOXIB 100 MG CAPSULE PO SCH (09:24)
[2017-08-21] MEDS: CALCITRIOL 0.25 MCG CAPSULE PO SCH (09:24)
[2017-08-21] MEDS: ASPIRIN/DIPYRIDAMOLE 25 MG/200 MG CAPSULE PO SCH (09:24)
[2017-08-21] MEDS: POLYETHYLENE GLYCOL 3350 17 GM PACKET PO SCH (10:47)
--- NOTE | 2017-08-21 12:39 | DISCHARGE SUMMARY ---
DATE OF ADMISSION: 08/19/2017 DATE OF DISCHARGE: 08/21/2017 DISCHARGE DIAGNOSES 1. Gastroenteritis. 2. Suspected infection. 3. Hypokalemia. Comorbidities are hyperlipidemia, osteoarthritis, dementia, depression, hypothyroidism and bladder in continence. The patient will follow up with Kar Carr next week. The patient will be taken to [facility] facility. The patient will have no prescriptions. The patient will resume home medications including 1. Metformin 2000 mg p.o. every day. 2. Aciphex 20 mg p.o. every day. 3. Detrol-LA 4 mg p.o. every day. 4. Zanaflex 4 mg p.o. every day. 5. Levothyroxine 112 mcg p.o. every day. 6. NovoLog sliding scale 1-4 units subcutaneously with meals. 7. Prozac 40 mg tab 1 p.o. twice a day. 8. Aricept 10 mg 1 tab p.o. every day. 9. Celebrex 200 mg 1 tab p.o. every day. 10. Rocaltrol 0.25 mcg 1 tab p.o. every day. 11. Atorvastatin 20 mg p.o. every day. She needs to stop her Lantus at bedtime and she needs to stop her lorazepam. HOSPITAL COURSE: The patient, an 82-year-old white female, was admitted with gastroenteritis that was treated with IV 0.9 normal saline, IV Zofran and Tylenol. Her hypokalemia was treated with potassium chloride. Her suspected infection was treated with IV Rocephin. Her hyperlipidemia was treated with Lipitor. Osteoarthritis was treated with Celebrex. Her dementia was treated with Aricept. Her depress ion was treated with Prozac. Her diabetes was treated with subcutaneously sliding scale NovoLog. Her hypothyroidism was treated with levothyroxine. Her urinary incontinence was treated with Detrol-LA. S he received subcutaneous heparin to prevent DVT. She received IV Protonix to prevent stress ulcer. Sh e improved and was discharged to assisted living. PHYSICAL EXAMINATION VITAL SIGNS: On discharge were temperature of 36.4, pulse of 55, a blood pressure of 150/70, a respir atory rate of 18, O2 saturation of 100% on room air. GENERAL APPEARANCE: She is alert, cooperative and nourished. HEENT: Her head is atraumatic, normocephalic. Eyes are PERRLA, EOMI. NECK: NECK: Supple. No JVD, no bruits, no thyroid enlargement. CARDIOVASCULAR: Bradycardia. A 3/6 systolic murmur at second right intercostal space and left sternal border. LUNGS: Clear to auscultation. ABDOMEN: Positive for bowel sounds, soft, nontender. No rebound, no guarding. EXTREMITIES: Warm. No edema, +2 pedal pulses. She has 5/5 muscle strength in upper and lower extremit ies. NEUROLOGICAL: She is oriented x3, follows commands, moves all 4 extremities. LABORATORY: On labs, her sodium is 136, her potassium is 4.1, chloride 104, bicarbonate is 25, BUN 13 , creatinine 0.8, glucose is 174, calcium is 8.8. Her white blood cell count is 9, hemoglobin is 12, hematocrit is 35.5, and her platelets are 166,000. JOB #: [id number] EXT JOB #:[id number]
== END 2017-08-21 10:15 | disposition home or self-care (01) | DRG 392 ==
LOC: ED 09:50 → OBS 13:08 → MS2 08-18 11:21 → OBSVTOIN 08-18 11:21 → INTOOBSV 08-19 08:01 → OBSVTOIN 08-19 08:01 → UNDODISIN 08-21 10:15
DX: K52.9 Noninfective gastroenteritis and colitis, unspecified (principal); A09 Infectious gastroenteritis and colitis, unspecified; E87.6 Hypokalemia; E86.0 Dehydration; M19.90 Unspecified osteoarthritis, unspecified site; F03.90 Unspecified dementia, unspecified severity, without behavioral disturbance, psychotic disturbance, mood disturbance, and anxiety; F32.9 Major depressive disorder, single episode, unspecified; E11.9 Type 2 diabetes mellitus without complications; E03.9 Hypothyroidism, unspecified; R32 Unspecified urinary incontinence; E78.5 Hyperlipidemia, unspecified; H91.90 Unspecified hearing loss, unspecified ear; K21.9 Gastro-esophageal reflux disease without esophagitis; Z66 Do not resuscitate; Z79.82 Long term (current) use of aspirin; Z79.4 Long term (current) use of insulin; Z79.84 Long term (current) use of oral hypoglycemic drugs; Z79.899 Other long term (current) drug therapy
CPT/HCPCS: 36415; 71010; 80048; 80053; 81001; 81003; 83036; 83605; 83690; 83735; 84443; 84484; 85025; 86850; 86900; 86901; 86920; 87040; 87045; 87046; 87077; 87086; 87493; 87798; 93005; 96361; 96365; 96366; 96367; 96374; 96375; 96376; 99284

== ENCOUNTER 2017-10-11 08:28 | Outpatient (CLI) | payer MEDICARE, BC | END 2017-10-11 08:29 | disposition home or self-care (01) | LOC: EMS 08:28 | PROVIDERS: ATTEND Surgery | DX: R53.83 Other fatigue (principal); W01.0XXA Fall on same level from slipping, tripping and stumbling without subsequent striking against object, initial encounter; Y92.092 Bedroom in other non-institutional residence as the place of occurrence of the external cause | CPT/HCPCS: A0425; A0429 ==

== ENCOUNTER 2017-10-11 08:44 | Observation (INO) | payer MEDICARE, BC ==
--- NOTE | 2017-10-11 09:18 | ED Physician Documentation ---
History of Present Illness - Stated complaint Stated Complaint: WEAKNESS - Chief complaint Chief Complaint: Neuro - Additonal information Additional information: hx from EMS and office records and pt 82 f pmhx DM ataxia hypothyroid neuropathy osteoporosis, bronciectasis, migraines, lung nodules. TIA, lentiform mass per paperwork from [facility] (pt lives there independently) she was found altered with sat 63% and HR 118 this AM and may have fallen per EMS pt had a HR in the 60s and sat 95% and FSBS 115 and was answering questions for them when pt arrives she is very drowsy but able to be aroused she denies any pain no reported fever cough NVD urinary sx Review of Systems Unable to obtain: Confused PD PAST MEDICAL HISTORY - Past Medical History Past Medical History: Yes Cardiovascular: High cholesterol Respiratory: None Neuro: Dementia, TIA, Peripheral neuropathy Endocrine/Autoimmune: Type 2 diabetes, HyPOthyroidism GI: GERD : Incontinence HEENT: Chronic hearing loss Psych: None Musculoskeletal: Osteoarthritis Derm: None - Past Surgical History Past Surgical History: Yes General: Appendectomy, Bowel surgery Ortho: Knee replacement - Present Medications Home Medications: Ambulatory Orders Medication Instructions Recorded Confirmed Atorvastatin Calcium 20 mg PO QPM 10/21/13 10/11/17 Calcitriol [Rocaltrol] 0.25 mcg PO DAILY 10/21/13 10/11/17 Celecoxib [CeleBREX] 200 mg PO DAILY 10/21/13 10/11/17 Donepezil HCl [Aricept] 10 mg PO DAILY 10/21/13 10/11/17 FLUoxetine [PROzac] 40 mg PO BID 10/21/13 10/11/17 Insulin Aspart (Vial) [NovoLOG 1 - 4 unit SQ PRN PRN 10/21/13 08/17/17 (VIAL FOR ED USE)] Levothyroxine Sodium [Synthroid] 112 mcg PO DAILY 10/21/13 10/11/17 Metformin HCl [Metformin HCl ER] 500 mg PO TIDWM 10/21/13 08/18/17 Tizanidine HCl [Zanaflex] 4 mg PO QPM 10/21/13 10/11/17 Tolterodine [Detrol LA] 4 mg PO DAILY 10/21/13 08/17/17 Rabeprazole Sodium [Aciphex] 20 mg PO DAILY PM 08/17/17 10/11/17 - Allergies Allergies/Adverse Reactions: Allergies Allergy/AdvReac Type Severity Reaction Status Date / Time No Known Drug Allergies Allergy Verified 10/21/13 15:44 - Social History Does the pt smoke?: No Smoking Status: Never smoker Does the pt drink ETOH?: No Does the pt have substance abuse?: No - Immunizations Immunizations are current?: Yes - POLST Patient has POLST: No POLST Status: Full Code PD ED PE NORMAL - Vitals Vital signs reviewed: Yes - HEENT HEENT: Atraumatic, PERRL (2), Moist mucous membranes. No: Pharynx benign (mild erythema) - Neck Neck: No bony TTP (but altered and reported fall) - Cardiac Cardiac: RRR - Respiratory Respiratory: No respiratory distress, Clear bilaterally - Abdomen Abdomen: Soft, Non tender - Derm Derm: Normal color - Neuro Neuro: No motor deficit, No sensory deficit, Normal speech, Other (very drowsy) . No: Alert and oriented X 3 Results - Vitals Vitals: Vital Signs - 24 hr 10/11/17 10/11/17 10/11/17 08:47 09:25 10:09 Temperature 36.1 C L 36.2 C L Heart Rate 95 56 L 56 L Respiratory 15 16 18 Rate Blood Pressure 170/69 H 159/63 H 156/81 H O2 Saturation 100 100 100 Oxygen O2 Source Room air - EKG (time done) 0921 Rate: Rate (enter#) (55) Rhythm: NSR [place]: Normal Intervals: Normal VT QRS: Normal, LVH Ischemia: Normal ST segments - Labs Labs: Laboratory Tests 10/11/17 10/11/17 10/11/17 09:25 09:25 09:25 WBC 7.4 RBC 4.01 L Hgb 12.9 Hct 38.6 MCV 96.4 MCH 32.2 H MCHC 33.5 RDW 15.4 H Plt Count 233 MPV 7.3 L Neut # 5.5 Lymph # 1.1 L [place] # 0.5 Eos # 0.2 Baso # 0.1 Absolute Nucleated RBC 0.01 Nucleated RBC % 0.1 Sodium 135 Potassium 3.8 Chloride 95 L Carbon Dioxide 28 Anion Gap 12.0 BUN 19 Creatinine 0.9 Estimated GFR (MDRD) 60 L Glucose 153 H Calcium 10.2 Troponin I < 0.04 TSH Urine Color Urine Clarity Urine pH Ur Specific [place] Urine Protein Urine Glucose (UA) Urine Ketones Urine Occult Blood Urine Nitrite Urine Bilirubin Urine Urobilinogen Ur Leukocyte Esterase Urine RBC Urine WBC Ur Squamous Epith Cells Urine Bacteria Ur Microscopic Review Urine Culture Comments Urine Opiates Screen Ur Oxycodone Screen Urine Methadone Screen Ur Propoxyphene Screen Ur Barbiturates Screen Ur Tricyclics Screen Ur Phencyclidine Scrn Ur Amphetamine Screen U Methamphetamines Scrn U Benzodiazepines Scrn Urine Cocaine Screen U Cannabinoids Screen Group A Strep Rapid 10/11/17 10/11/17 10/11/17 09:25 09:30 09:35 WBC RBC Hgb Hct MCV MCH MCHC RDW Plt Count MPV Neut # Lymph # [place] # Eos # Baso # Absolute Nucleated RBC Nucleated RBC % Sodium Potassium Chloride Carbon Dioxide Anion Gap BUN Creatinine Estimated GFR (MDRD) Glucose Calcium Troponin I TSH 19.13 H Urine Color LIGHT YELLOW Urine Clarity CLEAR Urine pH 6.5 Ur Specific [place] 1.010 Urine Protein NEGATIVE Urine Glucose (UA) NEGATIVE Urine Ketones NEGATIVE Urine Occult Blood NEGATIVE Urine Nitrite NEGATIVE Urine Bilirubin NEGATIVE Urine Urobilinogen 0.2 (NORMAL) Ur Leukocyte Esterase TRACE H Urine RBC 0-5 Urine WBC 0-3 Ur Squamous Epith Cells NONE SEEN Urine Bacteria Moderate H Ur Microscopic Review INDICATED Urine Culture Comments INDICATED Urine Opiates Screen NEGATIVE Ur Oxycodone Screen NEGATIVE Urine Methadone Screen NEGATIVE Ur Propoxyphene Screen NEGATIVE Ur Barbiturates Screen NEGATIVE Ur Tricyclics Screen NEGATIVE Ur Phencyclidine Scrn NEGATIVE Ur Amphetamine Screen NEGATIVE U Methamphetamines Scrn NEGATIVE U Benzodiazepines Scrn POSITIVE H Urine Cocaine Screen NEGATIVE U Cannabinoids Screen NEGATIVE Group A Strep Rapid Negative - Rads (name of study) CTH Radiology: See rad report (no acute) CTCS Radiology: See rad report (no fx, degen changes) CXR Radiology: See rad report (no acute airspace dz, mild pulm vascular congestion) PD MEDICAL DECISION MAKING - ED course ED course: AMS ne onset etiologyy still unclear hypothyroidism and markedly elev TSH but no hypotension hypothermia bradycardia , hyponatremia so not classic for myxedema coma UTI could be part of the cause reported fall but no ICH on CT aslo + benzo on MUDDS but no rx for same will tx UTI and admit for further care and management paged hospitalist at 1050 Departure - Departure Disposition: 66 [facility] DC/Xfer Clinical Impression: Altered mental status Qualifiers: Altered mental status type: somnolence Qualified Code(s): R40.0 - Somnolence Hypothyroidism Qualifiers: Hypothyroidism type: unspecified Qualified Code(s): E03.9 - Hypothyroidism, unspecified Urinary tract infection Qualifiers: Urinary tract infection type: site unspecified Hematuria presence: without hematuria Qualified Code(s): N39.0 - Urinary tract infection, site not specified Condition: Fair Discharge Date/Time: 10/11/17 12:03
--- NOTE | 2017-10-11 09:38 | CT Preliminary Report ---
Exam: CT HEAD W/O IMPRESSION: Generalized age-related cortical atrophic changes without evidence of acute intracranial abnormality. [facility] SITE ID: [id number]
[2017-10-11 09:39] LABS: BASOPHILS # (AUTO) 0.1 10^3/uL (0.0-0.1); EOSINOPHILS # (AUTO) 0.2 10^3/uL (0.0-0.7); EOSINOPHILS % (AUTO) 3.2 %; HCT - HEMATOCRIT 38.6 % (37.0-47.0); HGB - HEMOGLOBIN 12.9 g/dL (12.0-16.0); LYMPHOCYTES # (AUTO) 1.1 10^3/uL (1.5-3.5); MEAN CORPUSCULAR HEMOGLOBIN 32.2 pg (27.0-31.0); MEAN CORPUSCULAR HGB CONC 33.5 g/dL (32.0-36.0); MEAN CORPUSCULAR VOLUME 96.4 fL (81.0-99.0); MEAN PLATELET VOLUME 7.3 fL (7.9-10.8); MONOCYTES # (AUTO) 0.5 10^3/uL (0.0-1.0); MONOCYTES % (AUTO) 7.1 %; NEUTROPHILS # (AUTO) 5.5 10^3/uL (1.5-6.6); NEUTROPHILS % (AUTO) 73.7 %; NUCLEATED RED BLOOD CELLS AUTO 0.1 /100WBC; RED BLOOD COUNT 4.01 10^6/uL (4.20-5.40); RED CELL DISTRIBUTION WIDTH 15.4 % (12.0-15.0); UNCORRECTED WHITE BLOOD COUNT 7.4 x10^3/uL; WHITE BLOOD COUNT 7.4 x10^3/uL (4.8-10.8)
--- NOTE | 2017-10-11 09:41 | CT Report ---
EXAM: CT HEAD EXAM DATE: 10/11/2017 09:19 AM. CLINICAL HISTORY: AMS. COMPARISON: Head CT, axial images only, 12/20/2012. TECHNIQUE: Multiaxial CT images were obtained from the foramen magnum to the vertex. Reformats: Coron al. IV contrast: None. In accordance with CT protocol optimization, one or more of the following dose reduction techniques w ere utilized for this exam: automated exposure control, adjustment of mA and/or KV based on patient s ize, or use of iterative reconstructive technique. FINDINGS: Parenchyma: No intraparenchymal hemorrhage. No evidence of mass, midline shift, or CT findings of acu te infarction. Focal hypodensities near the inferior margin of the basal ganglia bilaterally, right l arger left, are without change and consistent with either dilated perivascular spaces or old lacunar infarcts. Perla-white differentiation is distinct. Diffuse chronic microangiopathic white matter tsai es are evident. Extraaxial Spaces: Normal for age. No subdural or epidural collections identified. Ventricles: The ventricles and cortical sulci are enlarged, consistent with age-related tissue loss. Sinuses and orbits: Imaged paranasal sinuses, orbits, and mastoids show no significant abnormality. Bones: No evidence of fracture or calvarial defect. Other: None. IMPRESSION: Generalized age-related cortical atrophic changes without evidence of acute intracranial abnormality. [facility] Referring Provider Line: [phone] SITE ID: [id number]
--- NOTE | 2017-10-11 09:47 | CT Preliminary Report ---
Exam: CT CERVICAL SPINE W/O IMPRESSION: 1. No fracture or acute abnormality. 2. Substantial degenerative disk and facet disease, as detailed above. 3. Mild anterior listhesis at C3-C4 and C4-C5, likely due to degenerative disease. 4. C5-C6 interbody osseous fusion. [facility] SITE ID: [id number]
[2017-10-11 09:48] LABS: BILIRUBIN,URINE NEGATIVE (NEGATIVE); PH,URINE 6.5 PH (5.0-7.5)
--- NOTE | 2017-10-11 09:50 | CT Report ---
EXAM: CT CERVICAL SPINE WITHOUT CONTRAST DATE: 10/11/2017 09:19 AM. HISTORY: Fall ams cant clear. COMPARISONS: None. TECHNIQUE: Thin-section axial images were acquired of the cervical spine without contrast. Post-proce ssing: Coronal and sagittal reformats. Other: None. In accordance with CT protocol optimization, one or more of the following dose reduction techniques w ere utilized for this exam: automated exposure control, adjustment of mA and/or KV based on patient s ize, or use of iterative reconstructive technique. FINDINGS: Alignment: No significant scoliosis. Approximate 2 mm of anterolisthesis at C3-C4 and 2-3 mm at C4 to 5 is likely due to degenerative facet disease. Bones: No fracture or bone lesion. Interspace Levels/Facets: Solid, interbody osseous fusion at C5-C6. Degenerative disk disease with severe disk space narrowing at C4-C5 and T1-T2 and less so at the C2-C3, C3-C4 and C7-T1. There is multilevel degenerative facet disease which is greatest at C2-C3, C3-C4 and C4-C5 and on the left at C7-T1. Facet hypertrophy and u ncovertebral spurring results in multilevel bony foraminal stenosis which is moderate to severe on th e left at C3-C4 and on the right at C4-C5 with varying degrees of mild to moderate stenosis at other levels. No high-grade bony canal stenosis. Musculature: Normal. No fatty atrophy. Other: The paravertebral and prevertebral soft tissues are unremarkable. The lung apices are clear. IMPRESSION: 1. No fracture or acute abnormality. 2. Substantial degenerative disk and facet disease, as detailed above. 3. Mild anterior listhesis at C3-C4 and C4-C5, likely due to degenerative disease. 4. C5-C6 interbody osseous fusion. [facility] Referring Provider Line: [phone] SITE ID: [id number]
[2017-10-11 09:56] LABS: UA w/ MICROSCOPIC CHARGE YES
[2017-10-11 10:02] LABS: CALCIUM 10.2 mg/dL (8.5-10.3); CREATININE 0.9 mg/dL (0.4-1.0); POTASSIUM 3.8 mmol/L (3.5-5.0)
[2017-10-11 10:03] LABS: UR CULTURE IF IND INDICATED; WBC,URINE 0-3 /HPF (0-5)
[2017-10-11 10:13] LABS: RAPID STREP SCREEN REAGENT QC YELLOW (YELLOW)
[2017-10-11] MEDS ORDERED: cefTRIAXone 1 GM in SODIUM CHLORIDE 0.9% MINIBAG 100 ML IV STA (10:45)
--- NOTE | 2017-10-11 11:25 | XRAY Preliminary Report ---
Exam: XR CHEST 1 VIEW IMPRESSION: 1. No acute airspace disease. 2. Mild pulmonary vascular congestion. [facility] SITE ID: [id number]
[2017-10-11] MEDS ORDERED: TEMAZEPAM 15 MG CAPSULE PO PRN (11:27)
[2017-10-11] MEDS ORDERED: ACETAMINOPHEN 325 MG TABLET PO PRN (11:27)
[2017-10-11] MEDS ORDERED: SODIUM CHLORIDE FLUSH 0.9% 10 ML SYRINGE IVP PRN (11:27)
--- NOTE | 2017-10-11 11:28 | XRAY Report ---
EXAM: CHEST RADIOGRAPHY EXAM DATE: 10/11/2017 11:09 AM. CLINICAL HISTORY: Altered mental status, hypoxia, [employer]. COMPARISON: None. TECHNIQUE: 1 view. FINDINGS: Lungs/Pleura: Cephalization of pulmonary vasculature. No pneumothorax or pleural effusion. No focal c onsolidation. Mediastinum: Within exam limitations, the cardiomediastinal contour is normal. Other: Diffuse osteopenia. Old, healed bilateral fractures. IMPRESSION: 1. No acute airspace disease. 2. Mild pulmonary vascular congestion. [facility] Referring Provider Line: [phone] SITE ID: [id number]
--- NOTE | 2017-10-11 12:40 | HISTORY & PHYSICAL EXAMINATION ---
Chief Complaint - Chief Complaint Chief Complaint: AMS Stroke/TIA/Neuro Template - Admitted From Admitted from: ED - History Obtained From Records Reviewed: RN notes reviewed, Old records reviewed History obtained from: Patient Exam limitations: Clinical condition (profound confusion, somulence.) - History of Present Illness Problem Location Description: AMS Severity at the worst: reports: Moderate Symptom Quality: reports: Ataxia, Syncope Date of onset: 10/12/17 Time of onset: 10:00 Duration: reports: Unknown Improved with: reports: Rest, Oxygen Worsened by: reports: Nothing Associated symptoms: reports: Feeling faint / dizzy, General Weakness HPI Comment/Other: Natalie Vadlez is an 82 year old female with a past medical history of diabetes mellitus, progressive ataxia, hypothyroidism, neuropathy osteoporosis, bronciectasis, migraines, lung nodules and TIA. Patient resides at [facility], an assisted living. She was found altered with oxygen saturation at 63% and HR 118 this AM, with evidence of a fall. Per EMS, patient was bradycardic with a heart rate of 65, O2 sat of 95% and blood glucose of 115 mg/dl. She was responsive and answering questions. After arriving in the ED, patient was arousable, but very drowsy. She denies pain, fever, chills, recent sick contacts, cough, N/V/D or urinary symptoms. Laboratory results show a elevated TSH at 19.13, although levothyroxine is on her medication list. She will be admitted to the hosptialist service for further work up of bradycardia, somulance, elevated TSH, and a PT/OT evaluation for possible a need for a higher level of care. PMH/PSH - Past Medical History Cardiovascular: positive: High cholesterol Respiratory: positive: None Neuro: positive: Dementia, TIA, Peripheral neuropathy Endocrine/Autoimmune: positive: Type 2 diabetes, HyPOthyroidism GI: positive: GERD : positive: Incontinence HEENT: positive: Chronic hearing loss Psych: positive: None Musculoskeletal: positive: Osteoarthritis Derm: positive: None MRSA Hx?: No - Past Surgical History General: positive: Appendectomy, Bowel surgery Ortho: positive: Knee replacement Social & Family Hx - Social History Does the pt smoke?: No Smoking Status: Never smoker Does the pt drink ETOH?: No Does the pt have substance abuse?: No - POLST Patient has POLST: No POLST Status: Full Code - Family History Family History: Mother: , Cancer, Father: , COPD/Emphysema, Sister: Alive and Well Meds/Allgy - Home Medications Home Medications: Ambulatory Orders Medication Instructions Recorded Confirmed Atorvastatin Calcium 20 mg PO QPM 10/21/13 10/11/17 Calcitriol [Rocaltrol] 0.25 mcg PO DAILY 10/21/13 10/11/17 Celecoxib [CeleBREX] 200 mg PO DAILY 10/21/13 10/11/17 Donepezil HCl [Aricept] 10 mg PO DAILY 10/21/13 10/11/17 FLUoxetine [PROzac] 40 mg PO BID 10/21/13 10/11/17 Levothyroxine Sodium [Synthroid] 112 mcg PO DAILY 10/21/13 10/11/17 Metformin HCl [Metformin HCl ER] 1,000 mg PO QDBREAKFAST 10/21/13 10/11/17 Tizanidine HCl [Zanaflex] 4 mg PO QPM 10/21/13 10/11/17 Rabeprazole Sodium [Aciphex] 20 mg PO DAILY PM 08/17/17 10/11/17 Insulin Glargine [Lantus Solostar] 15 units SUBQ DAILY 10/11/17 10/11/17 LORazepam [Lorazepam] 1 - 2 mg PO QPM 10/11/17 10/11/17 metFORMIN [Glucophage] 500 mg PO QDDINNER 10/11/17 10/11/17 - Allergies Allergies/Adverse Reactions: Allergies Allergy/AdvReac Type Severity Reaction Status Date / Time No Known Drug Allergies Allergy Verified 10/21/13 15:44 Review of Systems - Constitutional Constitutional: reports: Weakness, Poor appetite, Weight loss - Eyes Eyes: reports: Vision loss - Ears, Nose & Throat Ears, Nose & Throat: reports: Hearing loss, Dentures - Cardiovascular Cariovascular: reports: Decr. exercise tolerance - Gastrointestinal Gastrointestinal: reports: Poor appetite - Musculoskeletal Musculoskeletal: reports: Muscle weakness - Integumentary Integumentary: reports: Dryness - Neurological Neurological: reports: General weakness, Memory problems, Pre-existing deficit, Abnormal gait - Psychiatric Psychiatric: reports: Delusions - All Other Systems All Other Systems: reports: Reviewed and negative Exam - Vital Signs Reviewed Vital Signs: Yes Vital Signs: Vital Signs x48h Temp Pulse Pulse Resp BP BP Pulse Ox 10/11/17 12:31 36.2 C L 65 16 148/79 H 100 10/11/17 12:02 109/97 H 10/11/17 11:58 36.2 C L 60 16 100 - Physical Exam General Appearance: positive: No acute distress, Alert Eyes Bilateral: positive: Normal inspection ENT: positive: ENT inspection nml, Pharynx nml, Dry mucous membranes Neck: positive: Nml inspection, Thyroid nml, No JVD, Trachea midline Respiratory: positive: Chest non-tender, No respiratory distress, Other ( diminshed.) Cardiovascular: positive: Regular rate & rhythm, No gallop, Systolic murmur Peripheral Pulses: positive: 2+ Abdomen: positive: Non-tender, No organomegaly, Nml bowel sounds, No distention Back: positive: Nml inspection Skin: positive: Color nml, No rash, Warm, Dry Extremities: positive: Non-tender, Nml appearance, No pedal edema Neurologic/Psychiatric: positive: Disoriented to time, Weakness, Sensory loss, Depressed mood/affect Reflexes: Bicep (R): 2+, Bicep (L): 2+ Results - Lab Results Lab results reviewed: Yes Fish Bones: 10/11/17 09:25 10/11/17 09:25 - Diagnostic Imaging Results Diagnostic Imaging Results: positive: Prelim report reviewed - EKG Results EKG Interpreted Independently: Yes ARRA - Anticipated LOS Anticipated Stay Length: 2 or more midnights - AMI - Statin at Admit Aspirin Prescribed on Admit: Yes - Stroke - Rehab Assessment Rehab services assessment to be ordered?: Yes - DVT/VTE - Prophylaxis VTE/DVT Device ordered at admit?: Yes VTE/DVT Prophylaxis med ordered at admit?: Yes Impression/Plan - Problem List Problem List: Hypothyroidism, unspecified (E03.9) Patient has a known history. TSH was supremely elevated at 19. Plan: Continues levothyroxine at an increased dose of 150mcg. Type 2 diabetes mellitus without complications (E11.9) A1C was 7.9. Somewhat controlled. Patient states she check her sugars at home. Plan: Hold PO agents and place on SSI AC/HS. Unspecified dementia without behavioral disturbance (F03.90) Patient did not respond to some questions and stated, "it is none of your business". Deferred, and when re-asked was then appropriate. Plan: Re-orientate and continuity of care from nursing staff. Abnormal results of thyroid function studies (R94.6) TSH was found to be extremely elevated at 19 on admission. Plan: Resume home medication of levothyroxine at 150mcg daily. Repeated falls (R29.6)- Patient reports numerous falls that have been progressively more frequent. Plan: PT to evaluate. Plan to pursue SNF placement with a higher level of care. Head CT negative for bleed. DVT prophylaxis with enoxaprin. Code status-FULL. Greater than 60 minutes was spent on this admission including [id number] exam and counseling. Extra time was spent due to patient's AMS.
[2017-10-11] MEDS: SODIUM CHLORIDE FLUSH 0.9% 10 ML SYRINGE IVP SCH ×2 (13:12→21:30)
[2017-10-11] MEDS: SODIUM CHLORIDE 0.9% 1,000 ML IV SCH ×2 (13:12→22:17)
[2017-10-11] MEDS: ENOXAPARIN 40 MG/0.4 ML SYRINGE SUBQ SCH (13:12)
[2017-10-11] MEDS: FLUoxetine 10 MG CAPSULE PO SCH (22:18)
[2017-10-12] MEDS: SODIUM CHLORIDE FLUSH 0.9% 10 ML SYRINGE IVP SCH ×2 (05:30→12:38)
[2017-10-12 06:24] LABS: HEMOGLOBIN A1C 0.71 g/dL
[2017-10-12] MEDS ORDERED: LEVOTHYROXINE 75 MCG TABLET PO SCH (07:00)
--- NOTE | 2017-10-12 07:45 | PROVIDER PROGRESS NOTE ---
Subjective - Prog Note Date Prog Note Date: 10/12/17 Prog Note Time: 07:45 - Subjective Pt reports feeling: Improved Objective - Vital Signs/Intake & Output Vital Signs: Vital Signs x48h Temp Pulse Resp BP Pulse Ox 10/12/17 05:00 36.9 C 63 16 132/55 H 100 10/12/17 00:07 36.7 C 66 16 129/77 99 Intake & Output: Intake & Output 10/09/17 10/10/17 10/11/17 10/12/17 23:59 23:59 23:59 23:59 Intake Total 1673.333 Balance 1673.333 - Lab Results Fish Bones: 10/11/17 09:25 10/11/17 09:25 Other Labs: Lab Results x24hrs 10/12/17 Range/Units 05:28 Glycated Hemoglobin 7.3 H (4.6-6.2) % Estim Average Glucose 163 H (70-100)
[2017-10-12] MEDS: SODIUM CHLORIDE 0.9% 1,000 ML IV SCH (08:44)
[2017-10-12] MEDS: INSULIN ASPART 300 UNIT/3 ML PEN SUBQ SCH ×2 (08:49→12:25)
[2017-10-12] MEDS: ENOXAPARIN 40 MG/0.4 ML SYRINGE SUBQ SCH (08:49)
[2017-10-12] MEDS: FLUoxetine 10 MG CAPSULE PO SCH (08:50)
[2017-10-12] MEDS ORDERED: POLYETHYLENE GLYCOL 3350 17 GM PACKET PO SCH (09:00)
[2017-10-12] MEDS ORDERED: FAMOTIDINE 20 MG TABLET PO SCH (09:00)
[2017-10-12] MEDS ORDERED: INSULIN GLARGINE 300 UNIT/3 ML PEN SUBQ SCH (09:00)
[2017-10-12] MEDS ORDERED: TOLTERODINE LA 2 MG CAPSULE PO SCH (09:00)
[2017-10-12] MEDS ORDERED: amLODIPine 5 MG TABLET PO SCH (09:18)
[2017-10-12] MEDS ORDERED: CELECOXIB 100 MG CAPSULE PO SCH (10:00)
[2017-10-12 15:15] VITALS: BP 158/62
--- NOTE | 2017-10-12 15:23 | Discharge Plan ---
"Discharge Plan for SNF / [facility] - DC Plan and Transition Orders Disposition: 03 SNF DC/Xfer Condition: Fair SNF Transition Orders: Admit to: [facility] under the care of Kar Carr Discharge Diagnosis: AMS, elevated TSH, falls Medicare Certification: I certify that Post Hospital custodial care is medically necessary on a continuing basis for any of the conditions for which she/he is receiving care during hospitalization. Notify PCP of admission and forward orders to primary provider for signature. Weight on admission and weekly. Call PCP immediately if weight increases by 5 pounds or if patient develops dyspnea, chest pain/tightness or edema. House Bowel Program: yes If no BM after 2 days, nurse may give M.O.M. 30ml PO PRN and /or ducolax Supp 1 FL and /or BETHANY 250mg P.O., and/or senna 1-2 tabs PO. On day 3 nurse may give repeat above order until residents constipation is resolved. Immunizations: Annual Influenza Vaccine: yes. (between Jul 07 and February 03.) Unless allergy or already given Two-Step PPD: yes per [facility] [id number] or appropriate documentation of approved exceptions Treatments & Other Orders: Recommend supervised medication administration. Oxygen Orders: 1-2L nasal cannula to keep oxygen greater than 90%. Lab Tests or X-Rays Orders: Suggest recheck of TSH level in one month ~2017. Orthopedic Orders: N/A. Medications: PLEASE REFER TO THE DISCHARGE MEDICATION LIST. Insulin Orders? YES Diagnosis: Diabetes Initiate hypo and hyperglycemia protocols for BG <70 and BG >375. May check BG prn for signs/symptoms of dysglycemia. Frequency of BG checks: Daily Basal Insulin: Lantus 15 units inject subq Daily. Other: Resume Metformin as usual. Correction Insulin: - None Choose: Novolog/[id number] units /ml insulin inject subq per orders indicate below: N/A LOW DOSE MODERATE DOSE MODERATE/HIGH DOSE HIGH DOSE GB UNITS GB UNITS GB UNITS GB UNITS 61-140 0 UNITS 61-140 0 UNITS 61-140 0 UNITS 61-140 0 UNITS 141-175 1 UNITS 141-175 1 UNITS 141-175 2 UNITS 141-175 3 UNITS 176-225 2 UNITS 176-225 3 UNITS 176-225 4 UNITS 176-225 5 UNITS 226-275 3 UNITS 226-275 5 UNITS 226-275 6 UNITS 226-275 7 UNITS 276-325 4 UNITS 276-325 7 UNITS 276-325 8 UNITS 276-325 9 UNITS 326-375 5 UNITS 326-375 9 UNITS 326-375 10 UNITS 326-375 11 UNITS >375 CONTACT MD >375 CONTACT MD >375 CONTACT MD >375 CONTACT MD Custom Dosing: Choose: None/Novolog/Humalog 100 units/ml Insulin inject subq as follows: GB Units 61-140 Units 141-175 Units 176-225 Units 226-275 Units 276-325 Units 326-375 Units >375 Contact MD Allergies and Adverse Reactions: Allergies Allergy/AdvReac Type Severity Reaction Status Date / Time No Known Drug Allergies Allergy Verified 10/21/13 15:44 - Medications New Prescriptions: Donepezil [Aricept] 5 mg PO DAILY #30 tablet Levothyroxine [Synthroid] 150 mcg PO QDAC #30 tablet Lorazepam [Ativan] 0.5 mg PO QPM #30 tablet - Diet Texture: Regular May have monthly special meal: Yes - Therapies | Activity Therapy: Evaluation | Treat if indicated: Speech, PT, OT, Swallowing / ST Rehabilitation Potential: Maximize functional status, Return to independent living, Maintain present ADL Functional Activity: No Restrictions Weight Bearing: Full Weight Assistance Devices: Walker"
--- NOTE | 2017-10-12 15:57 | DISCHARGE SUMMARY ---
Discharge Summary Admit Date: 10/11/17 Discharge Date: 10/12/17 Discharging Provider: PAO Palacio Primary Care Provider: Kar Carr Code Status: Attempt Resuscitation Condition at Discharge: Fair Discharge Disposition: 03 SNF DC/Xfer Discharge Facility Name: [facility] - DIAGNOSES Admission Diagnoses: Hypothyroidism, unspecified (E03.9) Unspecified dementia without behavioral disturbance (F03.90) Type 2 diabetes mellitus without complications (E11.9) Unspecified fall, initial encounter (W19.XXXA) Altered mental status, unspecified (R41.82) Discharge Diagnoses with Status of Each Condition: Hypothyroidism, unspecified (E03.9)-chronic, adjusting Synthroid dose. Type 2 diabetes mellitus without complications (E11.9) -Stable, controlled. Unspecified dementia without behavioral disturbance (F03.90) -ongoing, complicated. Abnormal results of thyroid function studies (R94.6) -Elevated and unstable, recommend follow up labs. Repeated falls (R29.6)- ongoing risk, medications adjusted. - HPI History of Present Illness: Natalie Valdez is an 82 year old female with a past medical history of diabetes mellitus, progressive ataxia, hypothyroidism, neuropathy osteoporosis, bronciectasis, migraines, lung nodules and TIA. Patient resides at [facility], an assisted living. She was found altered with oxygen saturation at 63% and HR 118 this AM, with evidence of a fall. Per EMS, patient was bradycardic with a heart rate of 65, O2 sat of 95% and blood glucose of 115 mg/dl. She was responsive and answering questions. After arriving in the ED, patient was arousable, but very drowsy. She denies pain, fever, chills, recent sick contacts, cough, N/V/D or urinary symptoms. Laboratory results show a elevated TSH at 19.13, although levothyroxine is on her medication list. She will be admitted to the hosptialist service for further work up of bradycardia, somulance, elevated TSH, and a PT/OT evaluation for possible a need for a higher level of care due to frequent falls. - HOSPITAL COURSE Hospital Course: Patient was admitted after falling at her assisted living unit in [place]. She was found to be hypoxic with oxygen saturations of 65%, worsening AMS, and bradycardic. Labs revealed a severely elevated TSH at 19. Patient had worsening confusion after arriving on the nursing floor. She was monitored on telemetry, given IV fluids and evaluated by PT and OT. She threatened to leave against medical advice. [facility] came to evaluate a return to their facility. Medications were adjusted such as her HS lorazepam was decreased from 2mg to just 0.5mg, Aricept from 10mg to 5mg daily and her Synthroid dose increased from 112mcg to 150mcg, with recommendations to re-check in ~4 weeks. Discharge instructions also recommended to have a supervised medication pass to prevent Natalie from missing doses of her Synthroid and avoid taking more than intended of any other medication. Patient was agreeable to this plan, sister, who is patient's POA was updated. Patient was picked up in a wheel chair van and transported back to her facility in stable condition. - ALLERGIES Allergies/Adverse Reactions: Allergies Allergy/AdvReac Type Severity Reaction Status Date / Time No Known Drug Allergies Allergy Verified 10/21/13 15:44 - MEDICATIONS Home Medications: Ambulatory Orders Medication Instructions Recorded Confirmed Atorvastatin Calcium 20 mg PO QPM 10/21/13 10/11/17 Calcitriol [Rocaltrol] 0.25 mcg PO DAILY #30 10/12/17 10/11/17 Celecoxib [CeleBREX] 200 mg PO DAILY #30 10/12/17 10/11/17 Donepezil [Aricept] 5 mg PO DAILY #30 tablet 10/12/17 FLUoxetine [PROzac] 40 mg PO BID #30 10/12/17 10/11/17 Insulin Glargine [Lantus Solostar] 15 units SUBQ DAILY #30 10/12/17 10/11/17 Levothyroxine [Synthroid] 150 mcg PO QDAC #30 tablet 10/12/17 Lorazepam [Ativan] 0.5 mg PO QPM #30 tablet 10/12/17 Metformin HCl [Metformin HCl ER] 1,000 mg PO QDBREAKFAST #30 10/12/17 10/11/17 Rabeprazole Sodium [Aciphex] 20 mg PO DAILY PM #30 10/12/17 10/11/17 Tizanidine HCl [Zanaflex] 4 mg PO QPM #30 10/12/17 10/11/17 metFORMIN [Glucophage] 500 mg PO QDDINNER #30 10/12/17 10/11/17 - PHYSICAL EXAM AT DISCHARGE General Appearance: positive: No acute distress, Alert, Anxious (surrounding discharge plans.) Eyes Bilateral: positive: Normal inspection ENT: positive: ENT inspection nml, Pharynx nml, No signs of dehydration Neck: positive: Nml inspection, Thyroid nml, No JVD, Trachea midline Respiratory: positive: Chest non-tender, No respiratory distress, Other ( diminished.) Cardiovascular: positive: Regular rate & rhythm, No gallop Peripheral Pulses: positive: 2+ Abdomen: positive: Non-tender, No organomegaly, Nml bowel sounds, No distention Back: positive: Nml inspection Skin: positive: Color nml, No rash, Warm, Dry Extremities: positive: Non-tender, Full ROM, Pedal edema (mild, dependent.) Neurologic/Psychiatric: positive: Disoriented to time, Weakness, Sensory loss Reflexes: Bicep (R): 3+, Bicep (L): 3+ - LABS Result Diagrams: 10/11/17 09:25 10/11/17 09:25 - DIAGNOSTIC IMAGING Diagnostic Imaging Results: Final report reviewed - FOLLOW UP Follow Up: Treatments & Other Orders: Recommend supervised medication administration. Oxygen Orders: 1-2L nasal cannula to keep oxygen greater than 90%. Lab Tests or X-Rays Orders: Suggest recheck of TSH level in one month ~2017. - TIME SPENT Time Spent in Discharge (Minutes): 60
== END 2017-10-12 16:25 ==
LOC: EDUNIT# → ED 08:44 → MS2 11:27 → INTOOBSV 11:27
PROVIDERS: ADMIT Nurse Practitioner; ATTEND Nurse Practitioner
DX: E03.9 Hypothyroidism, unspecified (principal); E11.42 Type 2 diabetes mellitus with diabetic polyneuropathy; Z79.4 Long term (current) use of insulin; Z79.84 Long term (current) use of oral hypoglycemic drugs; F03.90 Unspecified dementia, unspecified severity, without behavioral disturbance, psychotic disturbance, mood disturbance, and anxiety; R29.6 Repeated falls; R27.0 Ataxia, unspecified; Z91.81 History of falling; Y92.099 Unspecified place in other non-institutional residence as the place of occurrence of the external cause; Z99.81 Dependence on supplemental oxygen; R09.02 Hypoxemia; Z86.73 Personal history of transient ischemic attack (TIA), and cerebral infarction without residual deficits; R32 Unspecified urinary incontinence; F32.9 Major depressive disorder, single episode, unspecified; M19.90 Unspecified osteoarthritis, unspecified site; Z79.82 Long term (current) use of aspirin; Z79.899 Other long term (current) drug therapy; K21.9 Gastro-esophageal reflux disease without esophagitis; E78.00 Pure hypercholesterolemia, unspecified; M81.0 Age-related osteoporosis without current pathological fracture; Z79.1 Long term (current) use of non-steroidal anti-inflammatories (NSAID); J47.9 Bronchiectasis, uncomplicated; H54.7 Unspecified visual loss; H91.90 Unspecified hearing loss, unspecified ear
CPT/HCPCS: 36415; 51701; 70450; 71010; 72125; 80048; 80306; 81001; 83036; 84443; 84484; 85025; 87070; 87086; 87430; 93005; 96361; 96365; 96372; 97161; 99284; 99285; A9270; G0378; G8978; G8979; G8980; J1650; J1815; 81003

== ENCOUNTER 2017-10-26 08:52 | Emergency (ER) | payer MEDICARE, BC ==
[2017-10-26 09:04] VITALS: BP 126/77
--- NOTE | 2017-10-26 09:56 | XRAY Preliminary Report ---
Exam: XR HIP W/PELVIS 2-3V LT IMPRESSION: 1. Lucency in the lateral margin of the left greater trochanter concerning for a nondisplaced fractur e. Further differentiation with CT of the left hip recommended. [facility] SITE ID: [id number]
--- NOTE | 2017-10-26 09:59 | XRAY Report ---
EXAM: LEFT HIP AND PELVIS RADIOGRAPHY EXAM DATE: 10/26/2017 09:44 AM. HISTORY: Severe left hip pain. COMPARISONS: None. TECHNIQUE: 1 view of the pelvis and 1 view of the hip. FINDINGS: Bones: Irregular lucency is seen through the lateral margin of the greater trochanter. No other osseo us abnormalities . Minimal degenerative spurring. Joints: Mild joint space narrowing. No dislocation. Degenerative changes of the lower lumbar spine an d right hip joint. Soft Tissues: Postsurgical changes with surgical staple line of the pelvis. Surgical clips in the rig ht lower quadrant. IMPRESSION: 1. Lucency in the lateral margin of the left greater trochanter concerning for a nondisplaced fractur e. Further differentiation with CT of the left hip recommended. [facility] Referring Provider Line: [phone] SITE ID: [id number]
--- NOTE | 2017-10-26 10:22 | ED Physician Documentation ---
History of Present Illness - Stated complaint Stated Complaint: L LEG PX - Chief complaint Chief Complaint: Ext Problem - Additonal information Additional information: hx from pt no fall or injury but when she woke up and tried to walk this AM she had L hip pain otherwise well Review of Systems Constitutional: denies: Fever Cardiac: denies: Chest pain / pressure Respiratory: denies: Dyspnea Musculoskeletal: reports: Joint pain PD PAST MEDICAL HISTORY - Past Medical History Cardiovascular: High cholesterol Respiratory: None Neuro: Dementia, TIA, Peripheral neuropathy Endocrine/Autoimmune: Type 2 diabetes, HyPOthyroidism GI: GERD : Incontinence HEENT: Chronic hearing loss Psych: None Musculoskeletal: Osteoarthritis Derm: None - Past Surgical History Past Surgical History: Yes General: Appendectomy, Bowel surgery Ortho: Knee replacement - Present Medications Home Medications: Ambulatory Orders Medication Instructions Recorded Confirmed Atorvastatin Calcium 20 mg PO QPM 10/21/13 10/26/17 Calcitriol [Rocaltrol] 0.25 mcg PO DAILY #30 10/12/17 10/26/17 Celecoxib [CeleBREX] 200 mg PO DAILY #30 10/12/17 10/26/17 Donepezil [Aricept] 5 mg PO DAILY #30 tablet 10/12/17 10/26/17 FLUoxetine [PROzac] 40 mg PO BID #30 10/12/17 10/26/17 Insulin Glargine [Lantus Solostar] 15 units SUBQ DAILY #30 10/12/17 10/26/17 Levothyroxine [Synthroid] 150 mcg PO QDAC #30 tablet 10/12/17 10/26/17 Lorazepam [Ativan] 0.5 mg PO QPM #30 tablet 10/12/17 10/26/17 Metformin HCl [Metformin HCl ER] 1,000 mg PO QDBREAKFAST #30 10/12/17 10/26/17 Rabeprazole Sodium [Aciphex] 20 mg PO DAILY PM #30 10/12/17 10/26/17 Tizanidine HCl [Zanaflex] 4 mg PO QPM #30 10/12/17 10/26/17 metFORMIN [Glucophage] 500 mg PO QDDINNER #30 10/12/17 10/26/17 - Allergies Allergies/Adverse Reactions: Allergies Allergy/AdvReac Type Severity Reaction Status Date / Time No Known Drug Allergies Allergy Verified 12/16/13 15:44 - Social History Does the pt smoke?: No Smoking Status: Never smoker Does the pt drink ETOH?: No Does the pt have substance abuse?: No - Immunizations Immunizations are current?: Yes - POLST Patient has POLST: No POLST Status: Full Code PD ED PE NORMAL - Vitals Vital signs reviewed: Yes - Cardiac Cardiac: RRR - Respiratory Respiratory: No respiratory distress, Clear bilaterally - Derm Derm: No rash - Extremities Extremities: Other (L hip - leg not short or rotated able to range the hip s pain, TTP posterior greater trochanter, MSV intact) Results - Vitals Vitals: Vital Signs - 24 hr 10/26/17 09:00 Temperature 36.4 C L Heart Rate 72 Respiratory 17 Rate Blood Pressure 126/77 O2 Saturation 100 Oxygen O2 Source Room air - Rads (name of study) hip Radiology: See rad report (lucency lateral margin L greater troch concerning for nondisplaced fx rec CT) CT hip Radiology: See rad report (no hip or pelvis fx, OA) Departure - Departure Disposition: 01 Home, Self Care Clinical Impression: Hip pain, left Condition: Good Follow-Up: Kar Carr MD [Primary Care Provider] - Comments: The hip is not broken. The exam does not suggest a blood clot or joint infection. It does not seem to be pain referred from your back or abdomen This could be a muscle strain or a soft tissue contusion I think it is fine for you to go home May walk as tolerated with your walker Tylenol and ice if needed for the pain Follow up with your PMD Return if worse
--- NOTE | 2017-10-26 11:19 | CT Preliminary Report ---
Exam: CT PELVIS W/O IMPRESSION: 1. No hip or pelvic fractures identified. 2. Minimal left hip osteoarthritis. 3. Grade 1 spondylolisthesis at approximately L5-S1. With severe disk and facet arthropathy. Lumbosac ral transitional segment. [facility] SITE ID: [id number]
--- NOTE | 2017-10-26 11:22 | CT Report ---
EXAM: CT BONY PELVIS WITHOUT CONTRAST EXAM DATE: 10/26/2017 10:46 AM. CLINICAL HISTORY: Left hip pain, concern for left hip fracture. COMPARISON: Radiographs performed the same date. TECHNIQUE: Thin-section axial images were acquired of the pelvis without contrast. Post-processing: C oronal and sagittal reformats. Other: None. In accordance with CT protocol optimization, one or more of the following dose reduction techniques w ere utilized for this exam: automated exposure control, adjustment of mA and/or KV based on patient s ize, or use of iterative reconstructive technique. FINDINGS: Bones and articular surfaces: There is a lumbosacral transitional segment which appears largely sacra lized right greater than left. The disk and facet joints appear partially fused at this level. The tr ansitional segment is considered S1 for the purposes of this report. Exact numbering would require wh ole spine imaging. There is 8 mm anterior subluxation L5 on S1 with associated severe degenerative fa cet arthropathy. Minimal degenerative change in the bilateral sacroiliac joints. Minimal left hip kristie nt space narrowing and marginal osteophyte formation. No acute hip or pelvic fracture identified. Soft tissues: Partially visualized mesh from previous midline anterior abdominal wall hernia repair. Postsurgical change at the a. C. Ascending colon. Diverticulosis without obvious diverticulitis. Musc ulotendinous structures unremarkable. IMPRESSION: 1. No hip or pelvic fractures identified. 2. Minimal left hip osteoarthritis. 3. Grade 1 spondylolisthesis at approximately L5-S1. With severe disk and facet arthropathy. Lumbosac ral transitional segment. [facility] Referring Provider Line: [phone] SITE ID: [id number]
[2017-10-26] MEDS ORDERED: ACETAMINOPHEN 325 MG TABLET PO STA (11:25)
== END 2017-10-26 12:21 | disposition home or self-care (01) ==
LOC: ED 08:52
DX: M25.552 Pain in left hip (principal); F03.90 Unspecified dementia, unspecified severity, without behavioral disturbance, psychotic disturbance, mood disturbance, and anxiety; E78.00 Pure hypercholesterolemia, unspecified; E11.42 Type 2 diabetes mellitus with diabetic polyneuropathy; Z79.4 Long term (current) use of insulin; E03.9 Hypothyroidism, unspecified; K21.9 Gastro-esophageal reflux disease without esophagitis; M19.90 Unspecified osteoarthritis, unspecified site; Z86.73 Personal history of transient ischemic attack (TIA), and cerebral infarction without residual deficits
CPT/HCPCS: 72192; 99282; 99283

== ENCOUNTER 2017-11-11 19:25 | Outpatient (CLI) | payer MEDICARE, BC | END 2017-11-11 19:26 | disposition critical access hospital (66) | LOC: EMS 19:25 | PROVIDERS: ATTEND Surgery | DX: R73.09 Other abnormal glucose (principal); R11.0 Nausea | CPT/HCPCS: A0425; A0427 ==